=== PATIENT | male | born 1965 ===

== ENCOUNTER 2017-10-17 11:57 | Observation (INO) | payer OTHER ==
[2017-10-17] MEDS ORDERED: Aspirin 325 mg EC Tablets PO ONE (13:04)
--- NOTE | 2017-10-17 13:57 | RAD ---
Chest x-ray single frontal view History: Chest pain. Comparison: None available. Findings: Mild venous congestion. Right hilar prominence. Tortuous ectatic aorta. Mild cardiomegaly. Mild patchy increased markings at the left lung base. Degenerative changes in the spine. Impression: Mild venous congestion. Right hilar prominence. Tortuous ectatic aorta. Mild cardiomegaly. Mild patchy increased markings at the left lung base.
[2017-10-17 14:01] LABS: BASO # 0.1 K/uL (0.0-0.2); BASO % 1.1 % (0.0-2.0); EOS # 0.1 K/uL (0.0-0.7); EOS % 2.4 % (0.0-4.0); HEMOGLOBIN 12.6 g/dL (12.0-18.0); LYMPH # 2.5 K/uL (1.0-4.3); LYMPH % 43.5 % (20.0-40.0); MEAN CORPUSCULAR HEMOGLOBIN 28.8 pg (27.0-31.0); MEAN CORPUSCULAR HGB CONC 32.4 g/dL (33.0-37.0); MEAN PLATELET VOLUME 9.4 fL (7.2-11.7); MONO # 0.3 K/uL (0.0-0.8); MONO % 6.1 % (0.0-10.0); NEUT # 2.7 K/uL (1.8-7.0); NEUT % 46.9 % (50.0-75.0); RBC 4.38 Mil/uL (4.40-5.90); RED CELL DISTRIBUTION WIDTH 13.1 % (11.5-14.5); WHITE BLOOD COUNT 5.7 K/uL (4.8-10.8)
[2017-10-17 14:02] LABS: INR 1.1; PROTHROMBIN TIME 12.5 SECONDS (9.7-12.2)
[2017-10-17 14:13] LABS: ALB/GLOB RATIO 1.1 (1.0-2.1); ALBUMIN 4.4 g/dL (3.5-5.0); CALCIUM 9.5 mg/dl (8.6-10.4); GFR AFRICAN-AMERICAN > 60; GFR NON-AFRICAN AMERICAN > 60
[2017-10-17 14:14] LABS: SQUAMOUS EPITHIAL < 1 /hpf (0-5); URINE BILIRUBIN NEGATIVE (NEGATIVE); URINE BLOOD NEGATIVE (NEGATIVE); URINE CLARITY Clear (Clear); URINE COLOR Yellow (YELLOW); URINE GLUCOSE (UA) NORMAL (Normal); URINE LEUKOCYTE ESTERASE NEG Leu/uL (Negative); URINE PROTEIN NEGATIVE (NEGATIVE); URINE UROBILINOGEN NORMAL mg/dL (0.2-1.0)
[2017-10-17 14:26] LABS: CK-MB 2.31 ng/mL (0.0-3.38)
[2017-10-17 14:28] LABS: BARBITURATES, UR NEGATIVE (NEGATIVE); BENZODIAZEPINES, UR NEGATIVE (NEGATIVE); OPIATES, UR NEGATIVE (NEGATIVE); PHENCYCLIDINE, UR NEGATIVE (NEGATIVE)
[2017-10-17 14:45] LABS: ALT/SGPT 46 U/L (21-72); AST/SGOT 50 U/L (17-59); BLOOD UREA NITROGEN 13 mg/dL (9-20)
--- NOTE | 2017-10-17 15:55 | C.PDOC ---
History Of Present Illness 52-year-old male, presents to the emergency department with complaints of high blood pressure. Patient states he checked his blood pressure last night and it was 170/120 When he woke up this morning he noted some mid sternal chest pain, prompting visit. He denies any shortness of breath, nausea/vomiting, neck pain, arm pain, numbness/weakness or any other associated symptoms. No other complaints at this time Time Seen by Provider: 10/17/17 12:30 Chief Complaint (Nursing): High Blood Pressure History Per: Patient History/Exam Limitations: no limitations Current Symptoms Are (Timing): Still Present Past Medical History Reviewed: Historical Data, Nursing Documentation, Vital Signs Vital Signs: Last Vital Signs Temp 97.6 F 10/17/17 17:53 Pulse 70 10/17/17 17:53 Resp 18 10/17/17 17:53 BP 138/91 H 10/17/17 17:53 Pulse Ox 98 10/17/17 18:31 - Medical History PMH: HTN Family History: States: No Known Family Hx - Social History Hx Alcohol Use: No Hx Substance Use: No - Immunization History Hx Tetanus Toxoid Vaccination: Yes Hx Influenza Vaccination: No Hx Pneumococcal Vaccination: (unk) Review Of Systems Constitutional: Negative for: Fever, Chills Cardiovascular: Positive for: Chest Pain. Negative for: Palpitations Respiratory: Negative for: Shortness of Breath Gastrointestinal: Negative for: Nausea, Vomiting Musculoskeletal: Negative for: Back Pain Skin: Negative for: Rash Neurological: Negative for: Weakness, Numbness, Headache Physical Exam - Physical Exam Appears: Well, Non-toxic, No Acute Distress Skin: Normal Color, Warm, Dry, No Rash Head: Atraumatic, Normacephalic Eye(s): bilateral: Normal Inspection, PERRL, EOMI Nose: Normal Oral Mucosa: Moist Lips: Normal Appearing Neck: Normal ROM Cardiovascular: Rhythm Regular, No Murmur Respiratory: Normal Breath Sounds, No Accessory Muscle Use Gastrointestinal/Abdominal: Soft, No Tenderness Back: Normal Inspection Extremity: Normal ROM, No Deformity, No Swelling Neurological/Psych: Oriented x3, Normal Speech ED Course And Treatment - Laboratory Results Result Diagrams: 10/17/17 13:45 10/17/17 13:48 ECG Rhythm: Sinus Bradycardia Interpretation Of ECG: nonspecific ST-T wave abnormalities Rate From EC O2 Sat by Pulse Oximetry: 98 (RA) Pulse Ox Interpretation: Normal - Other Rad Chest X-Ray X-Ray: Viewed By Me, Read By Radiologist Interpretation: Accession No. : [id number]. Patient Name / ID : [id number] / [id number]. Exam Date : 10/17/2017 13:15:22 ( Approved ). Study Comment : Sex / Age : M / [id number]. Creator : Reese Blackwell MD. Dictator : Reese Blackwell MD. Jewelry Appraiser : Senior Java Web Developer : Reese Blackwell MD. Approver2 : Report Date : 10/17/2017 13:55:47. My Comment : . Chest x-ray single frontal view. History: Chest pain. Comparison: None available. Findings: Mild venous congestion. Right hilar prominence. Tortuous ectatic aorta. Mild cardiomegaly. Mild patchy increased markings at the left lung base. Degenerative changes in the spine. Impression: Mild venous congestion. Right hilar prominence. Tortuous ectatic aorta. Mild cardiomegaly. Mild patchy increased markings at the left lung base. Progress Note: Bloodwork, EKG and UA ordered and reviewed. Pt treated with Aspirin. Case was d/w who accepted patient tele for observation. Disposition - Disposition Disposition: HOSPITALIZED Disposition Time: 15:53 Condition: FAIR - Clinical Impression Clinical Impression: Chest pain - Scribe Statement The provider has reviewed the documentation as recorded by the Scribe (Miguel Morgan) All medical record entries made by the Scribe were at my direction and personally dictated by me. I have reviewed the chart and agree that the record accurately reflects my personal performance of the history, physical exam, medical decision making, and the department course for this patient. I have also personally directed, reviewed, and agree with the discharge instructions and disposition. Decision To Admit - Pt Status Changed To: Hospital Disposition Of: Observation - . Bed Request Type: Telemetry Admitting Physician: Alexis Mari Patient Diagnosis: Chest pain
--- NOTE | 2017-10-17 17:02 | CP.PCM.HP ---
<Eliud Crocker - Last Filed: 10/17/17 17:41> History of Present Illness - History of Present Illness History of Present Illness: 52 year old [place] male with past medical history of hypertension presents to the ED today complaining of shortness of breath and elevated blood pressure. Patient as been experiencing shortness of breath with exertion for the past 3 weeks. His friend recommended him to see a doctor, which he did. Patient went to Dr. [place] in [place]. He underwent blood test, renal ultrasound and EKG. Patient was told that he has hypertension and an "enlarged heart" and was recommended to have an Echocardiogram done. Patient did not pursuit echo because it would cost him too much money. Patient was told start taking Labetalol, Losartan, and baby Aspirin 2 weeks ago. He has been compliant with these medications. However, he noticed his blood pressure reading at home was in the 180s yesterday with intermittent left sided chest burning sensation. No prior history of the same. Patient was worried which prompted him to come to the ED. Patient denies having blurred vision, headache, dizziness, abdominal pain, flank pain, nausea, vomiting, or urinary complaints. He is under some stress because he came the [place] 9 months and currently waiting for his immigration paperwork for him to start working again. PMD: none PMHx: HTN PSHx: none Allergy: none Social hx: social alcohol consumption, denies tobacco and other drug use. Lives with friends in a basement. Unemployed. Family Hx: Mother of AL at 51, father of AL at 75 Home meds: Labetalol 200mg BID, Losartan 100mg daily, ASA 81mg daily Present on Admission - Present on Admission Any Indicators Present on Admission: No Review of Systems - Review of Systems All systems: reviewed and no additional remarkable complaints except - Constitutional Constitutional: As Per HPI. absent: Chills, Excessive Sweating, Fatigue, Fever - EENT Eyes: As Per HPI. absent: Blind Spots, Blurred Vision, Decreased Night Vision Ears: As Per HPI. absent: Decreased Hearing, Abnormal Hearing, Dizziness Nose/Mouth/Throat: As Per HPI. absent: Epistaxis, Nasal Obstruction, Nasal Trauma - Cardiovascular Cardiovascular: As Per HPI, Dyspnea. absent: Chest Pain, Diaphoresis, Edema, Irregular Heart Rhythm, Pedal Edema, Syncope - Respiratory Respiratory: As Per HPI, Dyspnea. absent: Cough, Wheezing, Snoring, Stridor - Gastrointestinal Gastrointestinal: As Per HPI, Heartburn. absent: Abdominal Pain, Bloating, Diarrhea, Nausea, Vomiting - Genitourinary Genitourinary: As Per HPI. absent: Difficulty Urinating, Dysuria, Flank Pain, Hematuria - Reproductive: Male Reproductive:Male: As Per HPI - Musculoskeletal Musculoskeletal: As Per HPI. absent: Abnormal Gait, Deformity, Joint Swelling - Integumentary Integumentary: As Per HPI. absent: Acne, Change in Nails, Change in Pigmentation, Furuncle - Neurological Neurological: As Per HPI. absent: Tingling, Tremor, Vertigo, Weakness - Psychiatric Psychiatric: As Per HPI. absent: Anxiety, Auditory Hallucinations, Confusion - Endocrine Endocrine: As Per HPI. absent: Change in Body Appearance - Hematologic/Lymphatic Hematologic: As Per HPI. absent: Easy Bleeding, Easy Bruising Past Patient History - Past Social History Smoking Status: Never Smoked - CARDIAC Hx Hypertension: Yes - PSYCHIATRIC Hx Substance Use: No - SURGICAL HISTORY Hx Surgeries: No - ANESTHESIA Hx Anesthesia: No Meds Allergies/Adverse Reactions: Allergies Allergy/AdvReac Type Severity Reaction Status Date / Time No Known Allergies Allergy Unverified 10/17/17 12:04 Physical Exam - Constitutional Appears: Well, No Acute Distress - Head Exam Head Exam: ATRAUMATIC, NORMAL INSPECTION, NORMOCEPHALIC - Eye Exam Eye Exam: EOMI, Normal appearance, PERRL Pupil Exam: NORMAL ACCOMODATION, PERRL - ENT Exam ENT Exam: Mucous Membranes Moist, Normal Exam, Normal Oropharynx - Neck Exam Neck exam: Positive for: Full Rom, Normal Inspection. Negative for: Meningismus , Tenderness - Respiratory Exam Respiratory Exam: Clear to Auscultation Bilateral, NORMAL BREATHING PATTERN. absent: Wheezes, Respiratory Distress - Cardiovascular Exam Cardiovascular Exam: REGULAR RHYTHM, +S1, +S2. absent: Gallop, Irregular Rhythm , JVD - GI/Abdominal Exam GI & Abdominal Exam: Normal Bowel Sounds, Soft. absent: Tenderness - Extremities Exam Extremities exam: Positive for: normal capillary refill, normal inspection, pedal pulses present. Negative for: joint swelling, pedal edema, tenderness - Back Exam Back exam: NORMAL INSPECTION. absent: CVA tenderness (L), CVA tenderness (R), paraspinal tenderness - Neurological Exam Neurological exam: Alert, CN II-XII Intact, Normal Gait, Oriented x3 - Psychiatric Exam Psychiatric exam: Normal Affect, Normal Mood - Skin Skin Exam: Dry, Intact, Normal Color, Warm Results - Vital Signs Recent Vital Signs: Last Vital Signs Temp 98.7 F 10/17/17 15:12 Pulse 64 10/17/17 15:12 Resp 16 10/17/17 15:12 BP 135/87 10/17/17 15:12 Pulse Ox 98 10/17/17 16:17 - Labs Result Diagrams: 10/17/17 13:45 10/17/17 13:48 Labs: Laboratory Results - last 24 hr 10/17/17 10/17/17 10/17/17 13:45 13:45 13:45 WBC 5.7 RBC 4.38 L Hgb 12.6 Hct 38.9 MCV 89.0 MCH 28.8 MCHC 32.4 L RDW 13.1 Plt Count 199 MPV 9.4 Neut % (Auto) 46.9 L Lymph % (Auto) 43.5 H Cuming % (Auto) 6.1 Eos % (Auto) 2.4 Baso % (Auto) 1.1 Neut # (Auto) 2.7 Lymph # (Auto) 2.5 Cuming # (Auto) 0.3 Eos # (Auto) 0.1 Baso # (Auto) 0.1 PT 12.5 H INR 1.1 APTT 35 H Sodium Potassium Chloride Carbon Dioxide Anion Gap BUN Creatinine Est GFR ( Amer) Est GFR (Non-Af Amer) Random Glucose Calcium Total Bilirubin AST ALT Alkaline Phosphatase Total Creatine Kinase CK-MB (Mass) Troponin I Total Protein Albumin Globulin Albumin/Globulin Ratio Urine Color Yellow Urine Clarity Clear Urine pH 6.0 Ur Specific [place] 1.017 Urine Protein Negative Urine Glucose (UA) Normal Urine Ketones Negative Urine Blood Negative Urine Nitrate Negative Urine Bilirubin Negative Urine Urobilinogen Normal Ur Leukocyte Esterase Neg Urine WBC (Auto) < 1 Urine RBC (Auto) < 1 Ur Squamous Epith Cells < 1 Urine Opiates Screen Urine Methadone Screen Ur Barbiturates Screen Ur Phencyclidine Scrn Ur Amphetamines Screen U Benzodiazepines Scrn U Oth Cocaine Metabols U Cannabinoids Screen 10/17/17 10/17/17 13:45 13:48 WBC RBC Hgb Hct MCV MCH MCHC RDW Plt Count MPV Neut % (Auto) Lymph % (Auto) Cuming % (Auto) Eos % (Auto) Baso % (Auto) Neut # (Auto) Lymph # (Auto) Cuming # (Auto) Eos # (Auto) Baso # (Auto) PT INR APTT Sodium 142 Potassium 4.5 Chloride 105 Carbon Dioxide 24 Anion Gap 18 BUN 13 Creatinine 0.9 Est GFR ( Amer) > 60 Est GFR (Non-Af Amer) > 60 Random Glucose 76 Calcium 9.5 Total Bilirubin 1.2 AST 50 ALT 46 Alkaline Phosphatase 115 Total Creatine Kinase 295 H CK-MB (Mass) 2.31 Troponin I < 0.0120 Total Protein 8.4 H Albumin 4.4 Globulin 4.0 H Albumin/Globulin Ratio 1.1 Urine Color Urine Clarity Urine pH Ur Specific [place] Urine Protein Urine Glucose (UA) Urine Ketones Urine Blood Urine Nitrate Urine Bilirubin Urine Urobilinogen Ur Leukocyte Esterase Urine WBC (Auto) Urine RBC (Auto) Ur Squamous Epith Cells Urine Opiates Screen Negative Urine Methadone Screen Negative Ur Barbiturates Screen Negative Ur Phencyclidine Scrn Negative Ur Amphetamines Screen Negative U Benzodiazepines Scrn Negative U Oth Cocaine Metabols Negative U Cannabinoids Screen Negative Assessment & Plan - Assessment and Plan (Free Text) Assessment: Shortness of breath -Possible early CHF will follow up on echocardiogram -Follow BNP, TSH, lipid panel -Troponin negative, repeat pending -Outpatient EKG shows LVH, repeat pending -Lasix 20mg IV BID -CXR shows mild venous congestion, follow up AM repeat CXR HTN -Labetalol 200mg BID -Losartan 100mg daily -ASA 81 daily Prophylactic measures -Protonix -Lovenox -LOPEZ score of 1: 5% risk at 14 days of: all-cause mortality, new or recurrent AL, or severe recurrent ischemia requiring urgent revascularization. <Alexis Mari H - Last Filed: 10/18/17 11:05> Results - Vital Signs Recent Vital Signs: Last Vital Signs Temp 98.0 F 10/18/17 08:31 Pulse 58 L 10/18/17 08:31 Resp 20 10/18/17 08:31 BP 137/74 10/18/17 09:56 Pulse Ox 97 10/18/17 08:31 - Labs Result Diagrams: 10/18/17 06:36 10/18/17 06:36 Labs: Laboratory Results - last 24 hr 10/17/17 10/17/17 10/17/17 13:45 13:45 13:45 WBC 5.7 RBC 4.38 L Hgb 12.6 Hct 38.9 MCV 89.0 MCH 28.8 MCHC 32.4 L RDW 13.1 Plt Count 199 MPV 9.4 Neut % (Auto) 46.9 L Lymph % (Auto) 43.5 H Cuming % (Auto) 6.1 Eos % (Auto) 2.4 Baso % (Auto) 1.1 Neut # (Auto) 2.7 Lymph # (Auto) 2.5 Cuming # (Auto) 0.3 Eos # (Auto) 0.1 Baso # (Auto) 0.1 PT 12.5 H INR 1.1 APTT 35 H Sodium Potassium Chloride Carbon Dioxide Anion Gap BUN Creatinine Est GFR ( Amer) Est GFR (Non-Af Amer) Random Glucose Calcium Total Bilirubin AST ALT Alkaline Phosphatase Total Creatine Kinase CK-MB (Mass) Troponin I NT-Pro-B Natriuret Pep Total Protein Albumin Globulin Albumin/Globulin Ratio Triglycerides Cholesterol LDL Cholesterol Direct HDL Cholesterol TSH 3rd Generation Urine Color Yellow Urine Clarity Clear Urine pH 6.0 Ur Specific [place] 1.017 Urine Protein Negative Urine Glucose (UA) Normal Urine Ketones Negative Urine Blood Negative Urine Nitrate Negative Urine Bilirubin Negative Urine Urobilinogen Normal Ur Leukocyte Esterase Neg Urine WBC (Auto) < 1 Urine RBC (Auto) < 1 Ur Squamous Epith Cells < 1 Urine Opiates Screen Urine Methadone Screen Ur Barbiturates Screen Ur Phencyclidine Scrn Ur Amphetamines Screen U Benzodiazepines Scrn U Oth Cocaine Metabols U Cannabinoids Screen 10/17/17 10/17/17 10/17/17 13:45 13:48 19:51 WBC RBC Hgb Hct MCV MCH MCHC RDW Plt Count MPV Neut % (Auto) Lymph % (Auto) Cuming % (Auto) Eos % (Auto) Baso % (Auto) Neut # (Auto) Lymph # (Auto) Cuming # (Auto) Eos # (Auto) Baso # (Auto) PT INR APTT Sodium 142 Potassium 4.5 Chloride 105 Carbon Dioxide 24 Anion Gap 18 BUN 13 Creatinine 0.9 Est GFR ( Amer) > 60 Est GFR (Non-Af Amer) > 60 Random Glucose 76 Calcium 9.5 Total Bilirubin 1.2 AST 50 ALT 46 Alkaline Phosphatase 115 Total Creatine Kinase 295 H CK-MB (Mass) 2.31 Troponin I < 0.0120 NT-Pro-B Natriuret Pep 59.1 Total Protein 8.4 H Albumin 4.4 Globulin 4.0 H Albumin/Globulin Ratio 1.1 Triglycerides Cholesterol LDL Cholesterol Direct HDL Cholesterol TSH 3rd Generation 1.76 Urine Color Urine Clarity Urine pH Ur Specific [place] Urine Protein Urine Glucose (UA) Urine Ketones Urine Blood Urine Nitrate Urine Bilirubin Urine Urobilinogen Ur Leukocyte Esterase Urine WBC (Auto) Urine RBC (Auto) Ur Squamous Epith Cells Urine Opiates Screen Negative Urine Methadone Screen Negative Ur Barbiturates Screen Negative Ur Phencyclidine Scrn Negative Ur Amphetamines Screen Negative U Benzodiazepines Scrn Negative U Oth Cocaine Metabols Negative U Cannabinoids Screen Negative 10/17/17 10/18/17 10/18/17 19:51 06:36 06:36 WBC 5.2 RBC 4.25 L Hgb 12.2 Hct 37.6 MCV 88.3 MCH 28.8 MCHC 32.5 L RDW 12.8 Plt Count 247 MPV 8.6 Neut % (Auto) 55.9 Lymph % (Auto) 32.6 Cuming % (Auto) 8.0 Eos % (Auto) 2.5 Baso % (Auto) 1.0 Neut # (Auto) 2.9 Lymph # (Auto) 1.7 Cuming # (Auto) 0.4 Eos # (Auto) 0.1 Baso # (Auto) 0.1 PT INR APTT Sodium 140 Potassium 4.2 Chloride 104 Carbon Dioxide 26 Anion Gap 15 BUN 14 Creatinine 0.9 Est GFR ( Amer) > 60 Est GFR (Non-Af Amer) > 60 Random Glucose 88 Calcium 9.3 Total Bilirubin 1.0 AST 36 ALT 56 Alkaline Phosphatase 117 Total Creatine Kinase 258 H CK-MB (Mass) 1.73 Troponin I < 0.0120 NT-Pro-B Natriuret Pep Total Protein 7.8 Albumin 4.2 Globulin 3.7 Albumin/Globulin Ratio 1.1 Triglycerides 106 Cholesterol 187 LDL Cholesterol Direct 119 HDL Cholesterol 30 TSH 3rd Generation Urine Color Urine Clarity Urine pH Ur Specific [place] Urine Protein Urine Glucose (UA) Urine Ketones Urine Blood Urine Nitrate Urine Bilirubin Urine Urobilinogen Ur Leukocyte Esterase Urine WBC (Auto) Urine RBC (Auto) Ur Squamous Epith Cells Urine Opiates Screen Urine Methadone Screen Ur Barbiturates Screen Ur Phencyclidine Scrn Ur Amphetamines Screen U Benzodiazepines Scrn U Oth Cocaine Metabols U Cannabinoids Screen Attending/Attestation - Attestation I have personally seen and examined this patient.: Yes I have fully participated in the care of the patient.: Yes I have reviewed all pertinent clinical information: Yes Notes (Text): 10/18/17 11:03 Medical attending: Patient was seen and examined by me. Agree with the above note by the resident The patient was not in any acute distress when we saw him yesterday afternoon. He was speaking in full sentences. Calm, NAD The patient on the XCRAY may have had minimal congestion. He had an echo ordered as well as repeat CXRAYs. Lab work was stable The patient will need life style modifications, diet, exercise. Later the next day the echo returned. We will be trying to DC later today. He was provided RXs for medications and instructed that he should follow up at the clinic if possible. thank you Alexis Mari
[2017-10-17 20:35] LABS: CK-MB 1.73 ng/mL (0.0-3.38)
[2017-10-17 20:36] LABS: B-TYPE NATRIURETIC PEPTIDE 59.1 pg/mL (0-900)
[2017-10-18 01:17] VITALS: RESP 20
[2017-10-18 04:37] VITALS: O2SAT 97
[2017-10-18 06:44] LABS: BASO # 0.1 K/uL (0.0-0.2); EOS # 0.1 K/uL (0.0-0.7); EOS % 2.5 % (0.0-4.0); HEMOGLOBIN 12.2 g/dL (12.0-18.0); LYMPH # 1.7 K/uL (1.0-4.3); LYMPH % 32.6 % (20.0-40.0); MEAN CELL VOLUME 88.3 fL (80.0-94.0); MEAN CORPUSCULAR HEMOGLOBIN 28.8 pg (27.0-31.0); MEAN CORPUSCULAR HGB CONC 32.5 g/dL (33.0-37.0); MEAN PLATELET VOLUME 8.6 fL (7.2-11.7); MONO # 0.4 K/uL (0.0-0.8); NEUT # 2.9 K/uL (1.8-7.0); NEUT % 55.9 % (50.0-75.0); NRBC % 0.1 % (0.0-2.0); RBC 4.25 Mil/uL (4.40-5.90); RED CELL DISTRIBUTION WIDTH 12.8 % (11.5-14.5); WHITE BLOOD COUNT 5.2 K/uL (4.8-10.8)
[2017-10-18 07:17] LABS: LDL CHOLESTEROL 119 mg/dL (0-129)
[2017-10-18 07:24] LABS: ALBUMIN 4.2 g/dL (3.5-5.0); BLOOD UREA NITROGEN 14 mg/dL (9-20); CALCIUM 9.3 mg/dl (8.6-10.4); GFR AFRICAN-AMERICAN > 60; GFR NON-AFRICAN AMERICAN > 60
[2017-10-18 07:25] LABS: ALB/GLOB RATIO 1.1 (1.0-2.1); ALT/SGPT 56 U/L (21-72); AST/SGOT 36 U/L (17-59); HDL CHOLESTEROL 30 mg/dL (30-70)
[2017-10-18 08:32] VITALS: PULSE 58; TEMP 98
[2017-10-18 09:59] VITALS: BP 137/74
[2017-10-18] MEDS ORDERED: Pantoprazole 40 mg EC Tab PO SCH (10:00)
[2017-10-18] MEDS ORDERED: Enoxaparin 40 mg Syringe SC SCH (10:00)
--- NOTE | 2017-10-18 10:38 | CARD ---
APPROVED REPORT EXAM: Two-dimensional and M-mode echocardiogram with Doppler and color Doppler. Other Information Quality : LimitedTechnically LimitedRhythm : NSR INDICATION Dyspnea Chest Pain M-Mode DIMENSIONS RVDd2.26 (2.1-3.2cm)Left Atrium (MM)3.71 (2.5-4.0cm) IVSd1.02 (0.7-1.1cm)Aortic Root2.81 (2.2-3.7cm) LVDd3.63 (4.0-5.6cm)Aortic Cusp Exc.1.80 (1.5-2.0cm) PWd1.06 (0.7-1.1cm)FS (%) 58 % LVDs1.52 (2.0-3.8cm)LVEF (%)89 (>50%) Aortic Valve AoV Peak Jlzepfzu190.5cm/[place] Peak GR.11mmHg Mitral Valve MV E Xuurenlm54.2cm/sMV A Jpxrqrbu19.8cm/sE/A ratio0.7 TDI E/Lateral E'0.0E/Medial E'0.0 Tricuspid Valve TR Peak [id number]/sTR Peak Gr.[id number] LEFT VENTRICLE The left ventricle is normal size. There is normal left ventricular wall thickness. The left ventricular systolic function is normal. The left ventricular ejection fraction is within the normal range. There is normal LV segmental wall motion. Transmitral Doppler flow pattern is normal for age. RIGHT VENTRICLE The right ventricle is normal size. The right ventricular systolic function is normal. ATRIA The left atrium size is normal. The right atrium size is normal. AORTIC VALVE The aortic valve is normal in structure. No aortic regurgitation is present. There is no aortic valvular stenosis. MITRAL VALVE The mitral valve is normal in structure. There is no mitral valve regurgitation noted. TRICUSPID VALVE The tricuspid valve is normal in structure. There is trace tricuspid regurgitation. Right ventricular systolic pressure is estimated at less than 30 mmHg. PULMONIC VALVE The pulmonary valve is normal in structure. There is trace pulmonic valvular regurgitation. GREAT VESSELS The aortic root is normal in size. The IVC is normal in size and collapses >50% with inspiration. PERICARDIAL EFFUSION There is no pericardial effusion. <Conclusion> Normal bi-ventricualr function. No significant valvular abnormality. No pericardial effusion.
--- NOTE | 2017-10-18 11:23 | RAD ---
HISTORY: shortness of breath COMPARISON: Comparison chest 10/17/2017 FINDINGS: LUNGS: Poor inspiration with low lung volumes, crowded bronchovascular markings and minor bibasilar atelectasis. PLEURA: No significant pleural effusion identified, no pneumothorax apparent. CARDIOVASCULAR: Cardiomegaly. OSSEOUS STRUCTURES: No significant abnormalities. VISUALIZED UPPER ABDOMEN: Normal. OTHER FINDINGS: None. IMPRESSION: Poor inspiration with low lung volumes, crowded bronchovascular markings and minor bibasilar atelectasis.
[2017-10-18] MEDS ORDERED: Pneumococcal 23-Valent Vaccine IM ONE (12:00)
--- NOTE | 2017-10-18 18:00 | CP.PCM.DIS ---
<Danielle CATALANMonique K - Last Filed: 10/18/17 18:42> Provider - Provider Date of Admission: 10/17/17 15:52 Attending physician: Alexis Mari DO Time Spent in preparation of Discharge (in minutes): 40 Diagnosis - Discharge Diagnosis (1) Hypertension Status: Acute Comment: Patient was evaluated for chest pain and hypertension. Patient's blood pressure was controlled with losartan and labetalol. Patient had echocardiogram done while inpatient. Patient was provided with results of echo , as well as blood work. Patient has resolution of symptoms. Hospital Course - Lab Results Lab Results: Most Recent Lab Values WBC 5.2 K/uL (4.8-10.8) 10/18/17 06:36 RBC 4.25 Mil/uL (4.40-5.90) L 10/18/17 06:36 Hgb 12.2 g/dL (12.0-18.0) 10/18/17 06:36 Hct 37.6 % (35.0-51.0) 10/18/17 06:36 MCV 88.3 fL (80.0-94.0) 10/18/17 06:36 MCH 28.8 pg (27.0-31.0) 10/18/17 06:36 MCHC 32.5 g/dL (33.0-37.0) L 10/18/17 06:36 RDW 12.8 % (11.5-14.5) 10/18/17 06:36 Plt Count 247 K/uL (130-400) 10/18/17 06:36 MPV 8.6 fL (7.2-11.7) 10/18/17 06:36 Neut % (Auto) 55.9 % (50.0-75.0) 10/18/17 06:36 Lymph % (Auto) 32.6 % (20.0-40.0) 10/18/17 06:36 [place] % (Auto) 8.0 % (0.0-10.0) 10/18/17 06:36 Eos % (Auto) 2.5 % (0.0-4.0) 10/18/17 06:36 Baso % (Auto) 1.0 % (0.0-2.0) 10/18/17 06:36 Neut # (Auto) 2.9 K/uL (1.8-7.0) 10/18/17 06:36 Lymph # (Auto) 1.7 K/uL (1.0-4.3) 10/18/17 06:36 [place] # (Auto) 0.4 K/uL (0.0-0.8) 10/18/17 06:36 Eos # (Auto) 0.1 K/uL (0.0-0.7) 10/18/17 06:36 Baso # (Auto) 0.1 K/uL (0.0-0.2) 10/18/17 06:36 PT 12.5 SECONDS (9.7-12.2) H 10/17/17 13:45 INR 1.1 10/17/17 13:45 APTT 35 SECONDS (21-34) H 10/17/17 13:45 Sodium 140 mmol/L (132-148) 10/18/17 06:36 Potassium 4.2 mmol/L (3.6-5.2) 10/18/17 06:36 Chloride 104 mmol/L (98-107) 10/18/17 06:36 Carbon Dioxide 26 mmol/L (22-30) 10/18/17 06:36 Anion Gap 15 (10-20) 10/18/17 06:36 BUN 14 mg/dL (9-20) 10/18/17 06:36 Creatinine 0.9 mg/dL (0.8-1.5) 10/18/17 06:36 Est GFR ( Amer) > 60 10/18/17 06:36 Est GFR (Non-Af Amer) > 60 10/18/17 06:36 Random Glucose 88 mg/dL (75-110) 10/18/17 06:36 Calcium 9.3 mg/dl (8.6-10.4) 10/18/17 06:36 Total Bilirubin 1.0 mg/dL (0.2-1.3) 10/18/17 06:36 AST 36 U/L (17-59) 10/18/17 06:36 ALT 56 U/L (21-72) 10/18/17 06:36 Alkaline Phosphatase 117 U/L (38-126) 10/18/17 06:36 Total Creatine Kinase 258 U/L (55-170) H 10/17/17 19:51 CK-MB (Mass) 1.73 ng/mL (0.0-3.38) 10/17/17 19:51 Troponin I < 0.0120 ng/mL (0.00-0.120) 10/17/17 19:51 NT-Pro-B Natriuret Pep 59.1 pg/mL (0-900) 10/17/17 19:51 Total Protein 7.8 g/dL (6.3-8.3) 10/18/17 06:36 Albumin 4.2 g/dL (3.5-5.0) 10/18/17 06:36 Globulin 3.7 gm/dL (2.2-3.9) 10/18/17 06:36 Albumin/Globulin Ratio 1.1 (1.0-2.1) 10/18/17 06:36 Triglycerides 106 mg/dL (0-149) 10/18/17 06:36 Cholesterol 187 mg/dL (0-199) 10/18/17 06:36 LDL Cholesterol Direct 119 mg/dL (0-129) 10/18/17 06:36 HDL Cholesterol 30 mg/dL (30-70) 10/18/17 06:36 TSH 3rd Generation 1.76 mIU/L (0.46-4.68) 10/17/17 19:51 Urine Color Yellow (YELLOW) 10/17/17 13:45 Urine Clarity Clear (Clear) 10/17/17 13:45 Urine pH 6.0 (5.0-8.0) 10/17/17 13:45 Ur Specific [place] 1.017 (1.003-1.030) 10/17/17 13:45 Urine Protein Negative mg/dL (NEGATIVE) 10/17/17 13:45 Urine Glucose (UA) Normal mg/dL (Normal) 10/17/17 13:45 Urine Ketones Negative mg/dL (NEGATIVE) 10/17/17 13:45 Urine Blood Negative (NEGATIVE) 10/17/17 13:45 Urine Nitrate Negative (NEGATIVE) 10/17/17 13:45 Urine Bilirubin Negative (NEGATIVE) 10/17/17 13:45 Urine Urobilinogen Normal mg/dL (0.2-1.0) 10/17/17 13:45 Ur Leukocyte Esterase Neg Marek/uL (Negative) 06/29/18 13:45 Urine WBC (Auto) < 1 /hpf (0-5) 10/17/17 13:45 Urine RBC (Auto) < 1 /hpf (0-3) 10/17/17 13:45 Ur Squamous Epith Cells < 1 /hpf (0-5) 10/17/17 13:45 Urine Opiates Screen Negative (NEGATIVE) 10/17/17 13:45 Urine Methadone Screen Negative (NEGATIVE) 10/17/17 13:45 Ur Barbiturates Screen Negative (NEGATIVE) 10/17/17 13:45 Ur Phencyclidine Scrn Negative (NEGATIVE) 10/17/17 13:45 Ur Amphetamines Screen Negative (NEGATIVE) 10/17/17 13:45 U Benzodiazepines Scrn Negative (NEGATIVE) 10/17/17 13:45 U Oth Cocaine Metabols Negative (NEGATIVE) 10/17/17 13:45 U Cannabinoids Screen Negative (NEGATIVE) 10/17/17 13:45 - Hospital Course Hospital Course: On Admission: 52 year old Porfirio male with past medical history of hypertension presents to the ED today complaining of shortness of breath and elevated blood pressure. Patient as been experiencing shortness of breath with exertion for the past 3 weeks. His friend recommended him to see a doctor, which he did. Patient went to Dr. Wilson in [place]. He underwent blood test, renal ultrasound and EKG. Patient was told that he has hypertension and an "enlarged heart" and was recommended to have an Echocardiogram done. Patient did not pursuit echo because it would cost him too much money. Patient was told start taking Labetalol, Losartan, and baby Aspirin 2 weeks ago. He has been compliant with these medications. However, he noticed his blood pressure reading at home was in the 180s yesterday with intermittent left sided chest burning sensation. No prior history of the same. Patient was worried which prompted him to come to the ED. Patient denies having blurred vision, headache, dizziness, abdominal pain, flank pain, nausea, vomiting, or urinary complaints. He is under some stress because he came the [place] and currently waiting for his immigration paperwork for him to start working again. During hospitalizatoin: Patient's blood pressure was controlled during hospitalization. Patient's lipid panel was normal. Patient's thyroid function was normal. Patient's troponins were normal. BNP was not elevated. Echo: normal biventricular function, no significant valvular abnormality, no pericardial effusion, LVEF 65%. (see full report) chest xray: poor inspiration with low lung volumes, crowded bronchovascular markings, minor bibasilar atelectasis. No significant pleural effusion identified, no pneumothorax. Patient's symptoms improved during hospitalization. Patient was instructed to follow up with [facility] at [facility]. Diet and exercise, lifestyle modifications, were discussed at length with patient with use of Indemand Salvadorean translation device. On Discharge: Patient is stable for discharge home per Dr. Mari. Patient is to take the following medications: Labetalol 200mg twice a day, losartan 100mg once a day, lasix 20mg once a day in the morning, aspirin 81mg once a day. Patient is to follow up in the [facility] at [facility] and call on Friday for an appointment [phone]. Patient is to return to the ED if symptoms reoccur or worsen. This was explained to the patient with stage set up worker device; patient understands and agrees. Patient given palencia for half the cost of his medication. Explained to patient that he must pay other half of medication cost. Discharge Exam - Head Exam Head Exam: ATRAUMATIC, NORMAL INSPECTION, NORMOCEPHALIC - Eye Exam Eye Exam: EOMI - ENT Exam ENT Exam: Mucous Membranes Moist - Respiratory Exam Respiratory Exam: Clear to PA & Lateral, NORMAL BREATHING PATTERN - Cardiovascular Exam Cardiovascular Exam: +S1, +S2 - GI/Abdominal Exam GI & Abdominal Exam: Normal Bowel Sounds, Soft. absent: Tenderness - Extremities Exam Extremities exam: normal inspection - Neurological Exam Neurological exam: Alert, Oriented x3 - Psychiatric Exam Psychiatric exam: Normal Affect - Skin Skin Exam: Dry, Warm Discharge Plan - Discharge Medications Prescriptions: Aspirin [Aspirin Chewable] 81 mg PO DAILY #30 chew Furosemide [Lasix] 20 mg PO DAILY #30 udc Labetalol [Trandate] 200 mg PO BID #60 tab Losartan [Cozaar] 100 mg PO DAILY #30 tab - Follow Up Plan Condition: FAIR Disposition: HOME/ ROUTINE Instructions: Chest Pain (DC) Additional Instructions: Patient is stable for discharge home per Dr. Mari. Patient is to take the following medications: Labetalol 200mg twice a day, losartan 100mg once a day, lasix 20mg once a day in the morning, aspirin 81mg once a day. Patient is to follow up in the [facility] at [facility] and call on Friday for an appointment [phone]. Patient is to return to the ED if symptoms reoccur or worsen. This was explained to the patient with stage set up worker device; patient understands and agrees. Patient given palencia for half the cost of his medication. Explained to patient that he must pay other half of medication cost. El paciente es estable para la descarga casera por el Dr. Mari. El paciente debe eyal los siguientes medicamentos: 200 mg de labetalol dos veces al da, losartn 100mg vaishnavi vez al da, Lasix 20mg vaishnavi vez al da por la maana, aspirina 81mg vaishnavi vez al da. El paciente debe seguir en el centro de horacio del vecindario en el hospital [facility] y llamar el lunes para vaishnavi edgar [phone]. El paciente debe volver al Ed si los sntomas se reproducen o empeoran. [facility] fue explicada al paciente con el dispositivo Espaol del traductor; el paciente entiende y est de acuerdo. El paciente le bradford efectivo por la mitad del costo de rosenberg medicacin. Explic al paciente que debe pagar la otra mitad del costo de la medicacin. Referrals: [facility] at [facility] [Outside] <Alexis Mari - Last Filed: 10/19/17 07:59> Provider - Provider Date of Admission: 10/17/17 15:52 Attending physician: Alexis Mari, DO Hospital Course - Lab Results Lab Results: Most Recent Lab Values WBC 5.2 K/uL (4.8-10.8) 10/18/17 06:36 RBC 4.25 Mil/uL (4.40-5.90) L 10/18/17 06:36 Hgb 12.2 g/dL (12.0-18.0) 10/18/17 06:36 Hct 37.6 % (35.0-51.0) 10/18/17 06:36 MCV 88.3 fL (80.0-94.0) 10/18/17 06:36 MCH 28.8 pg (27.0-31.0) 10/18/17 06:36 MCHC 32.5 g/dL (33.0-37.0) L 10/18/17 06:36 RDW 12.8 % (11.5-14.5) 10/18/17 06:36 Plt Count 247 K/uL (130-400) 10/18/17 06:36 MPV 8.6 fL (7.2-11.7) 10/18/17 06:36 Neut % (Auto) 55.9 % (50.0-75.0) 10/18/17 06:36 Lymph % (Auto) 32.6 % (20.0-40.0) 10/18/17 06:36 [place] % (Auto) 8.0 % (0.0-10.0) 10/18/17 06:36 Eos % (Auto) 2.5 % (0.0-4.0) 10/18/17 06:36 Baso % (Auto) 1.0 % (0.0-2.0) 10/18/17 06:36 Neut # (Auto) 2.9 K/uL (1.8-7.0) 10/18/17 06:36 Lymph # (Auto) 1.7 K/uL (1.0-4.3) 10/18/17 06:36 [place] # (Auto) 0.4 K/uL (0.0-0.8) 10/18/17 06:36 Eos # (Auto) 0.1 K/uL (0.0-0.7) 10/18/17 06:36 Baso # (Auto) 0.1 K/uL (0.0-0.2) 10/18/17 06:36 PT 12.5 SECONDS (9.7-12.2) H 10/17/17 13:45 INR 1.1 10/17/17 13:45 APTT 35 SECONDS (21-34) H 10/17/17 13:45 Sodium 140 mmol/L (132-148) 10/18/17 06:36 Potassium 4.2 mmol/L (3.6-5.2) 10/18/17 06:36 Chloride 104 mmol/L (98-107) 10/18/17 06:36 Carbon Dioxide 26 mmol/L (22-30) 10/18/17 06:36 Anion Gap 15 (10-20) 10/18/17 06:36 BUN 14 mg/dL (9-20) 10/18/17 06:36 Creatinine 0.9 mg/dL (0.8-1.5) 10/18/17 06:36 Est GFR ( Amer) > 60 10/18/17 06:36 Est GFR (Non-Af Amer) > 60 10/18/17 06:36 Random Glucose 88 mg/dL (75-110) 10/18/17 06:36 Calcium 9.3 mg/dl (8.6-10.4) 10/18/17 06:36 Total Bilirubin 1.0 mg/dL (0.2-1.3) 10/18/17 06:36 AST 36 U/L (17-59) 10/18/17 06:36 ALT 56 U/L (21-72) 10/18/17 06:36 Alkaline Phosphatase 117 U/L (38-126) 10/18/17 06:36 Total Creatine Kinase 258 U/L (55-170) H 10/17/17 19:51 CK-MB (Mass) 1.73 ng/mL (0.0-3.38) 10/17/17 19:51 Troponin I < 0.0120 ng/mL (0.00-0.120) 10/17/17 19:51 NT-Pro-B Natriuret Pep 59.1 pg/mL (0-900) 10/17/17 19:51 Total Protein 7.8 g/dL (6.3-8.3) 10/18/17 06:36 Albumin 4.2 g/dL (3.5-5.0) 10/18/17 06:36 Globulin 3.7 gm/dL (2.2-3.9) 10/18/17 06:36 Albumin/Globulin Ratio 1.1 (1.0-2.1) 10/18/17 06:36 Triglycerides 106 mg/dL (0-149) 10/18/17 06:36 Cholesterol 187 mg/dL (0-199) 10/18/17 06:36 LDL Cholesterol Direct 119 mg/dL (0-129) 10/18/17 06:36 HDL Cholesterol 30 mg/dL (30-70) 10/18/17 06:36 TSH 3rd Generation 1.76 mIU/L (0.46-4.68) 10/17/17 19:51 Urine Color Yellow (YELLOW) 10/17/17 13:45 Urine Clarity Clear (Clear) 10/17/17 13:45 Urine pH 6.0 (5.0-8.0) 10/17/17 13:45 Ur Specific [place] 1.017 (1.003-1.030) 10/17/17 13:45 Urine Protein Negative mg/dL (NEGATIVE) 10/17/17 13:45 Urine Glucose (UA) Normal mg/dL (Normal) 10/17/17 13:45 Urine Ketones Negative mg/dL (NEGATIVE) 10/17/17 13:45 Urine Blood Negative (NEGATIVE) 10/17/17 13:45 Urine Nitrate Negative (NEGATIVE) 10/17/17 13:45 Urine Bilirubin Negative (NEGATIVE) 10/17/17 13:45 Urine Urobilinogen Normal mg/dL (0.2-1.0) 10/17/17 13:45 Ur Leukocyte Esterase Neg Marek/uL (Negative) 10/17/17 13:45 Urine WBC (Auto) < 1 /hpf (0-5) 10/17/17 13:45 Urine RBC (Auto) < 1 /hpf (0-3) 10/17/17 13:45 Ur Squamous Epith Cells < 1 /hpf (0-5) 10/17/17 13:45 Urine Opiates Screen Negative (NEGATIVE) 10/17/17 13:45 Urine Methadone Screen Negative (NEGATIVE) 10/17/17 13:45 Ur Barbiturates Screen Negative (NEGATIVE) 10/17/17 13:45 Ur Phencyclidine Scrn Negative (NEGATIVE) 10/17/17 13:45 Ur Amphetamines Screen Negative (NEGATIVE) 10/17/17 13:45 U Benzodiazepines Scrn Negative (NEGATIVE) 10/17/17 13:45 U Oth Cocaine Metabols Negative (NEGATIVE) 10/17/17 13:45 U Cannabinoids Screen Negative (NEGATIVE) 10/17/17 13:45 Attending/Attestation - Attestation I have personally seen and examined this patient.: Yes I have fully participated in the care of the patient.: Yes I have reviewed all pertinent clinical information, including history, physical exam and plan: Yes Notes (Text): 10/19/17 07:54 Medical attending: Patient was seen and examined by me. Reviewed above note by the resident This is a 52 year old gentleman who from what I understand just arrived from [place] and came to the hospital due to concerns for shortness of breath. He had a CXRAY and also Echo done. While here the patient had improvment with the help of IV lasix. He had many questions which required the help of translation. He had difficulty affording the cost of his medication and so we provided him with half the cost, he will be responsible for the other half. I will be extremely displeased with him should I find out in the future he used the money we provided him in a manner that is irresponsible. But I will give him the benifit of optomism. thank you Alexis Mari
== END 2017-10-18 14:45 | disposition home or self-care (01) ==
LOC: C.ER 11:57 → C.9E 15:52 → C.6T 16:44
PROVIDERS: ADMIT Hospitalist; ATTEND Hospitalist
DX: R07.89 Other chest pain (principal); I10 Essential (primary) hypertension; Z79.82 Long term (current) use of aspirin; Z82.49 Family history of ischemic heart disease and other diseases of the circulatory system; Z79.899 Other long term (current) drug therapy
CPT/HCPCS: 36415; 71045; 80053; 80061; 80324; 80345; 80346; 80349; 80353; 80358; 80361; 81001; 82550; 82553; 83036; 83880; 83992; 84443; 84484; 85025; 85610; 85730; 90471; 90732; 93306; 96372; 96374; 96376; 99285; G0378; J1650; J1940

== ENCOUNTER 2017-10-19 18:30 | Emergency (ER) | payer OTHER ==
[2017-10-19 18:38] VITALS: PULSE 90; TEMP 98.6; O2SAT 96
--- NOTE | 2017-10-19 19:30 | C.PDOC ---
History Of Present Illness 52 year old male presents to the ED c/o feeling hypotensive by home blood pressure cuff. Patient also states feeling mildly weak. Patient was admitted on 10/17 until 10/18 for elevated blood pressure. Patient was placed on labetalol and lasix, patient also had a cardiac echo done which is PMD Dr. Costello ordered but patient never had it done as an outpatient. Patient's admission was reviewed by me. CXR was negative with no signs of CHF, normal cardiac echo, patient never had any leg edema. Time Seen by Provider: 10/19/17 18:46 Chief Complaint (Nursing): Dizziness/Lightheaded History Per: Patient History/Exam Limitations: no limitations Onset/Duration Of Symptoms: Days Current Symptoms Are (Timing): Still Present Number Of Syncopal Episodes: 1 Activity At Onset Of Symptoms: Standing Associated Symptoms Preceding Syncopal Episode: No Predromal Symptoms (Sudden Onset) Seizure Or Post-ictal Symptoms: None Fall Associated With With Symptoms: No Severity: None Recent travel outside of the [place]: No Additional History Per: Patient Past Medical History Reviewed: Historical Data, Nursing Documentation, Vital Signs Vital Signs: Last Vital Signs Temp 98.6 F 10/19/17 18:35 Pulse 90 10/19/17 19:21 Resp 18 10/19/17 19:21 BP 102/68 10/19/17 19:21 Pulse Ox 96 10/19/17 19:30 - Medical History PMH: HTN Surgical History: No Surg Hx Family History: States: Unknown Family Hx - Social History Hx Alcohol Use: No Hx Substance Use: No - Immunization History Hx Tetanus Toxoid Vaccination: Yes Hx Influenza Vaccination: No Hx Pneumococcal Vaccination: (unk) Review Of Systems Constitutional: Positive for: Weakness. Negative for: Fever, Chills Cardiovascular: Negative for: Chest Pain, Palpitations Respiratory: Negative for: Cough, Shortness of Breath Gastrointestinal: Negative for: Nausea, Vomiting, Abdominal Pain Genitourinary: Negative for: Frequency, Incontinence Skin: Negative for: Rash Neurological: Negative for: Dizziness Physical Exam - Physical Exam Appears: Non-toxic, No Acute Distress, Other (morbidly obese male) Skin: Normal Color, Warm, Dry Head: Atraumatic, Normacephalic Eye(s): bilateral: Normal Inspection Oral Mucosa: Moist Neck: Normal ROM, Supple Chest: Symmetrical Cardiovascular: Rhythm Regular, No JVD Respiratory: Normal Breath Sounds, No Rales, No Rhonchi, No Wheezing Gastrointestinal/Abdominal: Soft, No Tenderness, No Guarding, No Rebound Extremity: Normal ROM, No Tenderness, No Pedal Edema, Capillary Refill (< 2 seconds) Pulses: Left Dorsalis Pedis: Normal, Right Dorsalis Pedis: Normal Neurological/Psych: Oriented x3, Normal Speech Gait: Steady ED Course And Treatment O2 Sat by Pulse Oximetry: 96 (ON RA) Pulse Ox Interpretation: Normal Medical Decision Making Medical Decision Making: Patient states he is currently taking : * Losartan 100 mg in the AM * Labetolo 200 at 8 AM and the at Midnight 200 mg as well. * Lasix 40 mg in the AM * Aspirin 81 mg. Old records reviewed by me: admitted 10/17- for elevated BP BP controlled with lasix as inpatient but continued as outpatient though pt without any s/s of CHF d/w Hospitalists ok to d/c Lasix extensively educated pt to take BID labetalol @ 8AM and 4PM and NOT 8AM and midnight. ? malingering as pt claims to be "waiting until someone gives me the other $40 to buy my medicines" was given $20 palencia from physicians kind enough to help this pt. Pt certainly has means to continue to buy his own meds. Disposition Doctor Will See Patient In The: Office Counseled Patient/Family Regarding: Studies Performed, Diagnosis - Disposition Referrals: Bridger Costello MD [Medical Doctor] - Disposition: HOME/ ROUTINE Disposition Time: 19:30 Condition: GOOD Additional Instructions: Sigue Losartan 100 mg en la manana (8AM) Sigue Labetolol 200 mg dos veces al faustino: (8AM y 4PM) Leigha de eyal el Lasix- Ud NO tiene yosef del alesha congestivo. Sigue Aspirina 81 mg diario (en la manana) Sigue con Dr. Sewell Instructions: High Blood Pressure in Adults Forms: [facility] (South Korean) Print Language: BURMESE - Clinical Impression Clinical Impression: Blood pressure check - Scribe Statement The provider has reviewed the documentation as recorded by the Scribe Octavio Diaz All medical record entries made by the Scribe were at my direction and personally dictated by me. I have reviewed the chart and agree that the record accurately reflects my personal performance of the history, physical exam, medical decision making, and the department course for this patient. I have also personally directed, reviewed, and agree with the discharge instructions and disposition.
[2017-10-19 19:38] VITALS: BP 102/68; RESP 18
--- NOTE | 2017-10-20 19:52 | CARD ---
APPROVED REPORT EKG Measurement Heart [id number] <Conclusion> Normal sinus rhythm Moderate voltage criteria for LVH, may be normal variant Nonspecific T wave abnormality Abnormal ECG
== END 2017-10-19 19:38 | disposition home or self-care (01) ==
LOC: C.ER 18:30
DX: Z04.8 Encounter for examination and observation for other specified reasons (principal)

== ENCOUNTER 2017-11-18 11:45 | Emergency (ER) | payer OTHER ==
[2017-11-18 12:10] VITALS: RESP 18; O2SAT 98
--- NOTE | 2017-11-18 12:20 | C.PDOC ---
History Of Present Illness <Dolores Puga - Last Filed: 11/18/17 12:56> <Lena Mayer - Last Filed: 11/19/17 08:15> 52 year old male patient presents to the ER with c/o subjective fever and chills for 1 week. Patient also report a new onset: left 2nd toe pain that has occurred for 4 days. Patient denies hx of diabetes and trauma. SUBJ FEVER, CHILLS X 1 WEEK, NEW ONSET L 2ND TOE PAIN X 4 DAYS. NO HO DM. NO TRAUMA EXAM NAD NONTOXIC EXT L FOOT: 2ND TOE NO SWELLING. GEN TEND NO DEFORM SKIN +SUPERFICIAL ULCERATION TIP 2ND TOE, NO ERYTHEMA REMAINDER NEG (Dolores Puga) History Per: Patient History/Exam Limitations: no limitations Onset/Duration Of Symptoms: Days (x1 week) <Dolores Puga - Last Filed: 11/18/17 12:56> <LeylaLena Stiles - Last Filed: 11/19/17 08:15> Time Seen by Provider: 11/18/17 12:07 Chief Complaint (Nursing): Fever Past Medical History Reviewed: Historical Data, Nursing Documentation, Vital Signs - Medical History PMH: HTN Family History: States: Unknown Family Hx - Social History Hx Alcohol Use: No Hx Substance Use: No - Immunization History Hx Tetanus Toxoid Vaccination: Yes Hx Influenza Vaccination: No Hx Pneumococcal Vaccination: (unk) <Dolores Puga - Last Filed: 11/18/17 12:56> Vital Signs: Last Vital Signs Temp 98 F 11/18/17 14:14 Pulse 76 11/18/17 14:14 Resp 18 11/18/17 14:14 BP 156/73 H 11/18/17 14:14 Pulse Ox 98 11/18/17 14:14 Review Of Systems Except As Marked, All Systems Reviewed And Found Negative. Constitutional: Positive for: Fever (subjective). Negative for: Other (trauma; no hx of diabetes) Musculoskeletal: Positive for: Foot Pain (left 2nd toe pain) <Dolores Puga - Last Filed: 11/18/17 12:56> Physical Exam - Physical Exam Appears: Well, Non-toxic, No Acute Distress Skin: Normal Color, Warm, Dry Head: Atraumatic, Normacephalic Eye(s): bilateral: Normal Inspection Neck: Normal ROM, Supple Chest: Symmetrical, No Deformity Cardiovascular: Rhythm Regular Respiratory: Normal Breath Sounds Gastrointestinal/Abdominal: Soft, No Tenderness Back: No CVA Tenderness Extremity: Tenderness (general tenderness to left second toe ), No Deformity ( left 2nd toe), No Swelling (left 2nd toe), Other (+ superficial ulceration tip on left foot 2nd toe; no erythema) Pulses: Left Dorsalis Pedis: Normal, Right Dorsalis Pedis: Normal Neurological/Psych: Oriented x3, Normal Speech, Normal Motor, Normal Sensation, Normal Reflexes Gait: Steady <EddDolores - Last Filed: 11/18/17 12:56> ED Course And Treatment - Laboratory Results Result Diagrams: 11/18/17 12:41 O2 Sat by Pulse Oximetry: 98 (RA) Pulse Ox Interpretation: Normal Progress Note: Impression: patient with subjective fever and left foot, 2nd toe pain. Plans: -- blood work. -- CXR. -- XR left foot 2nd digit. -- UA. Reassess: Patient is resting comfortably, and is afebrile at this time. Clinical signs and symptoms are not suggestive of sepsis, meningitis, UTI, pneumonia, intra-abdominal pathology, or cellulitis. Patient instructed to f/u with PCP in 1-2 days. <EddDolores - Last Filed: 11/18/17 12:56> - Laboratory Results Result Diagrams: 11/18/17 12:41 11/18/17 12:41 <Lena aMyer - Last Filed: 11/19/17 08:15> Progress - Data Reviewed Data Reviewed: Lab, Diagnostic imaging, Old records <EddDolores - Last Filed: 11/18/17 12:56> Disposition Counseled Patient/Family Regarding: Studies Performed, Diagnosis - Disposition Disposition Time: 13:00 - POA Present On Arrival: Poor Glycemic Control <EddDolores - Last Filed: 11/18/17 12:56> Counseled Patient/Family Regarding: Studies Performed, Diagnosis, Need For Followup, Rx Given - Disposition Disposition Time: 13:30 <Lena Mayer - Last Filed: 11/19/17 08:15> - Disposition Referrals: [facility] [Outside] Podiatry Clinic [Outside] Disposition: HOME/ ROUTINE Condition: STABLE Prescriptions: Cephalexin [Keflex] 500 mg PO BID #14 capsule Naproxen 375 mg PO BID PRN #20 tablet PRN Reason: pain Forms: [facility] (Yemeni), General Discharge Instructions Print Language: TELUGU - Clinical Impression Clinical Impression: Toe pain, Fever, Toe ulcer - Scribe Statement The provider has reviewed the documentation as recorded by the Scribe <Dolores Puga - Last Filed: 11/18/17 12:56> <Lena Mayer - Last Filed: 11/19/17 08:15> - Scribe Statement Looney Do (Dolores Puga) Provider Attestation: All medical record entries made by the Scribe were at my direction and personally dictated by me. I have reviewed the chart and agree that the record accurately reflects my personal performance of the history, physical exam, medical decision making, and the department course for this patient. I have also personally directed, reviewed, and agree with the discharge instructions and disposition. (Dolores Puga) Physician Patient Turnover Patient Signed Over To: Lena Mayer Handoff Comments: LABS, DISPO <Dolores Puga - Last Filed: 11/18/17 12:56> Addendum <Dolores Puga - Last Filed: 11/18/17 12:56> <Lena Mayer - Last Filed: 11/19/17 08:15> Addendum: 11/18/17 13:55 Patient resting comfortably, c/o mild headache. Blood work unremarkable, vitals WNL. Left 2nd toe with small <0.5cm ulcer on tip. Will give patient Keflex for mild wound/possibly developing cellulitis. Patient instructed to follow up with PMD/clinic in 1-2 days, and with podiatry within 1 week. He understands he should return to ED if symptoms worsen. (Lena Mayer)
[2017-11-18 12:52] LABS: BASO # 0.1 K/uL (0.0-0.2); BASO % 0.5 % (0.0-2.0); EOS % 0.4 % (0.0-4.0); HEMOGLOBIN 12.1 g/dL (12.0-18.0); LYMPH # 1.6 K/uL (1.0-4.3); LYMPH % 16.2 % (20.0-40.0); MEAN CORPUSCULAR HEMOGLOBIN 29.5 pg (27.0-31.0); MEAN CORPUSCULAR HGB CONC 33.5 g/dL (33.0-37.0); MEAN PLATELET VOLUME 8.3 fL (7.2-11.7); MONO # 0.9 K/uL (0.0-0.8); MONO % 9.6 % (0.0-10.0); NEUT # 7.1 K/uL (1.8-7.0); NEUT % 73.3 % (50.0-75.0); RBC 4.1 Mil/uL (4.40-5.90); RED CELL DISTRIBUTION WIDTH 13.7 % (11.5-14.5)
[2017-11-18 12:56] LABS: WHITE BLOOD COUNT 9.7 K/uL (4.8-10.8)
[2017-11-18 13:07] LABS: BLOOD UREA NITROGEN 15 mg/dL (9-20); CALCIUM 9.2 mg/dl (8.6-10.4); GFR AFRICAN-AMERICAN > 60; GFR NON-AFRICAN AMERICAN > 60
[2017-11-18 13:08] LABS: SQUAMOUS EPITHIAL 3 /hpf (0-5); URINE BILIRUBIN NEGATIVE (NEGATIVE); URINE BLOOD NEGATIVE (NEGATIVE); URINE CLARITY Clear (Clear); URINE COLOR Amber (YELLOW); URINE GLUCOSE (UA) NORMAL (Normal); URINE LEUKOCYTE ESTERASE NEG Leu/uL (Negative); URINE PROTEIN 2+ mg/dL (NEGATIVE)
[2017-11-18] MEDS ORDERED: Naproxen 550 mg Tab PO STA (13:54)
[2017-11-18] MEDS ORDERED: Naproxen 550 mg Tab PO ONE (14:10)
[2017-11-18 14:15] VITALS: BP 156/73; PULSE 76; TEMP 98
--- NOTE | 2017-11-18 14:27 | RAD ---
Date of service: 11/18/2017 PROCEDURE: Left foot attention 2nd toe HISTORY: PAIN COMPARISON: Not available TECHNIQUE: Three views of left foot attention 2nd digit FINDINGS: No evidence of fracture. No lytic or blastic osseous lesion. The joint spaces are preserved. The articular surfaces are smooth. There is soft tissue swelling seen about the distal aspect of the 2nd digit. IMPRESSION: No acute fracture.
--- NOTE | 2017-11-18 14:30 | RAD ---
Date of service: 11/18/2017 HISTORY: FEVER COMPARISON: No prior. TECHNIQUE: Chest PA and lateral FINDINGS: LUNGS: Left parahilar opacity that does not silhouette the left heart border. Suspicious for superior segment lower lobe infiltrate. This is not clearly evident in the lateral projection. Follow-up advised. No other abnormal opacity elsewhere. PLEURA: No significant pleural effusion identified. No pneumothorax apparent. CARDIOVASCULAR: Normal. OSSEOUS STRUCTURES: No significant abnormalities. VISUALIZED UPPER ABDOMEN: Normal. OTHER FINDINGS: None. IMPRESSION: Suspected left lower lobe superior segment infiltrate. Possible pneumonia. Follow-up advised.
== END 2017-11-18 14:14 | disposition home or self-care (01) ==
LOC: C.ER 11:45
DX: R50.9 Fever, unspecified (principal); L97.529 Non-pressure chronic ulcer of other part of left foot with unspecified severity; M79.675 Pain in left toe(s)

== ENCOUNTER 2017-11-21 10:38 | Emergency (ER) | payer OTHER ==
[2017-11-21 10:43] VITALS: RESP 18
[2017-11-21] MEDS ORDERED: Sodium Chloride 0.9% 1,000 ML IV ONE (11:04)
[2017-11-21] MEDS ORDERED: Azithromycin 500 MG in Sodium Chloride 0.9% 250 ML IVPB STA (11:05)
--- NOTE | 2017-11-21 11:13 | C.PDOC ---
History Of Present Illness 52 year old male presents to ED c/o headache, body aches, fever, and cough for the past week. Pt was evaluated 3 days ago for fever with diagnosis of viral illness. CXR at that time showed left lower infiltrate and is taking antibiotics for it. Denies visual changes, dizziness, chest pain, or shortness of breath. Time Seen by Provider: 11/21/17 10:53 Chief Complaint (Nursing): Headache History Per: Patient History/Exam Limitations: no limitations Past Medical History Reviewed: Historical Data, Nursing Documentation, Vital Signs Vital Signs: Last Vital Signs Temp 100.8 F H 11/21/17 10:41 Pulse 107 H 11/21/17 10:41 Resp 18 11/21/17 10:41 BP 121/84 11/21/17 10:41 Pulse Ox 98 11/21/17 12:12 - Medical History PMH: HTN Family History: States: Unknown Family Hx - Social History Hx Alcohol Use: No Hx Substance Use: No - Immunization History Hx Tetanus Toxoid Vaccination: Yes Hx Influenza Vaccination: No Hx Pneumococcal Vaccination: (unk) Review Of Systems Except As Marked, All Systems Reviewed And Found Negative. Constitutional: Positive for: Fever, Chills, Other (body aches) Cardiovascular: Negative for: Chest Pain, Palpitations, Light Headedness Respiratory: Positive for: Cough. Negative for: Shortness of Breath Gastrointestinal: Negative for: Nausea, Vomiting Neurological: Positive for: Headache. Negative for: Weakness, Numbness, Dizziness Physical Exam - Physical Exam Appears: Non-toxic, No Acute Distress Skin: Normal Color, Warm, Dry Head: Atraumatic, Normacephalic Eye(s): bilateral: Normal Inspection Nose: Normal Oral Mucosa: Moist Neck: Normal ROM, Supple, No Other (no nuchal rigidity) Chest: Symmetrical Cardiovascular: Rhythm Regular Respiratory: Normal Breath Sounds, No Rales, No Rhonchi, No Wheezing Gastrointestinal/Abdominal: Soft, No Tenderness Extremity: Normal ROM, No Deformity, No Other ((-)Kernig's sign (-)Babinski sign ) Neurological/Psych: Oriented x3, Normal Speech ED Course And Treatment - Laboratory Results Result Diagrams: 11/21/17 11:24 11/21/17 11:24 O2 Sat by Pulse Oximetry: 98 (RA) Pulse Ox Interpretation: Normal Medical Decision Making Medical Decision Making: Blood work, UA, CXR ordered and reviewed. Pt was given Toradol, Tylenol, Rocephin, Azithromycin, and IV fluids. Impression: Pneumonia Pt does not demonstrate signs of meningitis, will treat pneumonia as documented in CXR. patient resting comfortably, abic started for pneumonia. will discharge home and advise follow up with pmd within 2 days. Disposition Counseled Patient/Family Regarding: Studies Performed, Diagnosis, Need For Followup, Rx Given - Disposition Referrals: [facility] [Outside] Disposition: HOME/ ROUTINE Disposition Time: 12:12 Condition: STABLE Additional Instructions: follow up with your doctor or medical clinic within 2 days call to make an appointment take medications as prescribed return to ER if symptoms worsens or progress Prescriptions: Azithromycin [Zithromax] 250 mg PO DAILY #4 tab Naproxen [Naprosyn] 500 mg PO BID PRN #16 tab PRN Reason: Pain, Moderate (4-7) Instructions: Pneumonia in Adults Forms: Gen Discharge Inst Beninese, [facility] (Beninese), Work Excuse Print Language: LEBANESE - Clinical Impression Clinical Impression: Pneumonia - Scribe Statement The provider has reviewed the documentation as recorded by the Scribe KP All medical record entries made by the Scribe were at my direction and personally dictated by me. I have reviewed the chart and agree that the record accurately reflects my personal performance of the history, physical exam, medical decision making, and the department course for this patient. I have also personally directed, reviewed, and agree with the discharge instructions and disposition.
[2017-11-21 11:29] LABS: BASO # 0.1 K/uL (0.0-0.2); BASO % 0.8 % (0.0-2.0); EOS % 0.1 % (0.0-4.0); HEMOGLOBIN 10.4 g/dL (12.0-18.0); LYMPH % 13.9 % (20.0-40.0); MEAN CELL VOLUME 87.8 fL (80.0-94.0); MEAN CORPUSCULAR HEMOGLOBIN 29.2 pg (27.0-31.0); MEAN CORPUSCULAR HGB CONC 33.3 g/dL (33.0-37.0); MEAN PLATELET VOLUME 9.1 fL (7.2-11.7); MONO # 1.7 K/uL (0.0-0.8); MONO % 11.7 % (0.0-10.0); NEUT # 10.4 K/uL (1.8-7.0); NEUT % 73.5 % (50.0-75.0); NRBC % 0.1 % (0.0-2.0); RBC 3.56 Mil/uL (4.40-5.90); RED CELL DISTRIBUTION WIDTH 13.6 % (11.5-14.5); WHITE BLOOD COUNT 14.2 K/uL (4.8-10.8)
--- NOTE | 2017-11-21 11:44 | RAD ---
HISTORY: COMPARISON: No prior. TECHNIQUE: Chest PA and lateral FINDINGS: LINES AND TUBES: None. LUNG AND PLEURA: The lungs are well inflated. There is focal consolidation in the lingula No pleural effusion or pneumothorax. HEART AND MEDIASTINUM: The heart is not enlarged. The hilar and mediastinal contours are within normal limits. SKELETAL STRUCTURES: The bony structures are within normal limits for the patient's age. VISUALIZED UPPER ABDOMEN: Normal. OTHER FINDINGS: None. IMPRESSION: Focal consolidation in the lingula most compatible with pneumonia. However follow-up after medical management is recommended to ensure complete resolution.
[2017-11-21 11:50] LABS: ALBUMIN 4.2 g/dL (3.5-5.0); ALT/SGPT 80 U/L (21-72); AST/SGOT 62 U/L (17-59); BLOOD UREA NITROGEN 17 mg/dL (9-20); CALCIUM 9.3 mg/dl (8.6-10.4); GFR AFRICAN-AMERICAN > 60; GFR NON-AFRICAN AMERICAN > 60
[2017-11-21] MEDS ORDERED: cefTRIAXone IV 1 gm in Dextros 50 ML IVPB ONE (11:54)
[2017-11-21] MEDS ORDERED: Sodium Chloride 0.9% 1,000 ML ONE (11:54)
[2017-11-21 12:02] LABS: URINE BACTERIA RARE (<OCC); URINE BILIRUBIN NEGATIVE (NEGATIVE); URINE BLOOD NEGATIVE (NEGATIVE); URINE CLARITY Clear (Clear); URINE COLOR Amber (YELLOW); URINE GLUCOSE (UA) NORMAL (Normal); URINE HYALINE CAST 0-2 /lpf (0-2); URINE LEUKOCYTE ESTERASE NEG Leu/uL (Negative); URINE PROTEIN 2+ mg/dL (NEGATIVE)
[2017-11-21 12:27] VITALS: BP 124/75; PULSE 97; TEMP 100.9; O2SAT 97
== END 2017-11-21 13:39 | disposition home or self-care (01) ==
LOC: C.ER 10:38
DX: J18.9 Pneumonia, unspecified organism (principal); I10 Essential (primary) hypertension
CPT/HCPCS: 71046; 80053; 81001; 85025; 87040; 96365; 96375; 99285; J0456; J0696; J1885; J7030; J7050

== ENCOUNTER 2017-11-25 11:22 | Emergency (ER) | payer OTHER ==
[2017-11-25 11:32] VITALS: BP 146/78; PULSE 86; RESP 18; TEMP 97.8; O2SAT 99
--- NOTE | 2017-11-25 12:14 | C.PDOC ---
History Of Present Illness 52 y/o male comes to ED for evaluation s/p antibiotics for pneumonia; pt finished curse of Zithromax today; sts no more fever,chills, or cough, feels well. pt also c/o foul smelling 'pus' coming out of his upper back for several days. Time Seen by Provider: 11/25/17 11:40 Chief Complaint (Nursing): Medical Clearance History Per: Patient History/Exam Limitations: no limitations Current Symptoms Are (Timing): Gone Reports Recently: Seen In ED Past Medical History Reviewed: Historical Data, Nursing Documentation, Vital Signs Vital Signs: Last Vital Signs Temp 97.8 F 11/25/17 11:29 Pulse 86 11/25/17 11:29 Resp 18 11/25/17 11:29 BP 146/78 11/25/17 11:29 Pulse Ox 99 11/25/17 19:42 - Medical History PMH: HTN, Hypercholesterolemia Surgical History: No Surg Hx Family History: States: Unknown Family Hx - Social History Hx Alcohol Use: No Hx Substance Use: No - Immunization History Hx Tetanus Toxoid Vaccination: Yes Hx Influenza Vaccination: No Hx Pneumococcal Vaccination: Yes Review Of Systems Constitutional: Negative for: Fever, Chills Cardiovascular: Negative for: Chest Pain Respiratory: Negative for: Cough, Shortness of Breath Skin: Positive for: Other ('pus' from skin upper back). Negative for: Rash Neurological: Negative for: Weakness, Numbness Physical Exam - Physical Exam Appears: Non-toxic, No Acute Distress Skin: Warm, Dry, Other (flat area to upper back with waxy, malodorous discharge (consistent with cystic material). no surrounding erythema, warmth or swelling ) Head: Atraumatic, Normacephalic Eye(s): bilateral: Normal Inspection Oral Mucosa: Moist Neck: Supple Chest: Symmetrical, No Deformity, No Tenderness Cardiovascular: Rhythm Regular, No Murmur Respiratory: Normal Breath Sounds, No Rales, No Rhonchi, No Wheezing Extremity: Normal ROM Neurological/Psych: Normal Speech, Normal Cognition ED Course And Treatment O2 Sat by Pulse Oximetry: 99 (on RA) Pulse Ox Interpretation: Normal Medical Decision Making Medical Decision Making: pt feeling well after finishing tx for pna, no feve, chills., neck evaluated; appears to be epidermoid cyst, no signs of infections. d/c home, f.u med clinic and derm Disposition Counseled Patient/Family Regarding: Diagnosis, Need For Followup - Disposition Referrals: [facility] [Outside] Disposition: HOME/ ROUTINE Disposition Time: 12:16 Condition: GOOD Additional Instructions: Por favor lamine un seguimiento en la clnica mdica en las 1-2 semanas; Recomiende repetir la radiografa de trax para evaluar la resolucin de la neumona en un mes. Si el quiste en rosenberg espalda le molesta, puede hacer un seguimiento con el dermatlogo. Jason la lista de proveedores que le dieron. Regrese a la neo de emergencias por cualquier empeoramiento de los sntomas. Please follow up in medical clinic in the the 1-2 weeks; Recommend repeat chest xray to evaluate resolution of pneumonia in one month. If the cyst on your back bothers you, you can follow up with transportation assistant. See list of providers given to you. Return to ED for any worsening symptoms. Instructions: Epidermal Cyst (DC) Forms: Gen Discharge Inst Georgian, [facility] (Georgian) Print Language: ICELANDIC - Clinical Impression Clinical Impression: Medical assessment, Epidermal cyst
== END 2017-11-25 12:23 | disposition home or self-care (01) ==
LOC: C.ER 11:22
DX: Z04.8 Encounter for examination and observation for other specified reasons (principal); L72.0 Epidermal cyst

== ENCOUNTER 2017-12-01 21:53 | Emergency (ER) | payer OTHER ==
--- NOTE | 2017-12-01 23:10 | C.PDOC ---
History Of Present Illness 52 y/o male presents to the emergency department after falling down from some wet steps at 0300 at home. Patient currently complains of head pain, neck pain m chest wall pain and laceration to left 5th digit but denies any LOC, fever, chills, nausea, or vomiting. Remembers the event - HPI Time Seen by Provider: 12/01/17 23:10 Chief Complaint (Nursing): Trauma History Per: Patient History/Exam Limitations: no limitations Onset/Duration Of Symptoms: Hrs Injury Occurred (Timing): Days Ago: (1) Location Of Injury: Left: Hand (laceration to 5th digit), Anterior: Chest, Posterior: Neck Severity: Severe Pain Scale Rating Of: 5 Recent travel outside of the [place]: No Additional History Per: Patient - Fall Fall:Prior To Injury: Tripped, Slipped Past Medical History Reviewed: Historical Data, Nursing Documentation, Vital Signs Vital Signs: Last Vital Signs Temp 98.1 F 12/02/17 06:00 Pulse 74 12/02/17 06:00 Resp 13 12/02/17 06:00 BP 136/92 H 12/02/17 06:00 Pulse Ox 98 12/02/17 06:00 - Medical History PMH: HTN, Hypercholesterolemia Family History: States: No Known Family Hx - Social History Hx Alcohol Use: No Hx Substance Use: No - Immunization History Hx Tetanus Toxoid Vaccination: Yes Hx Influenza Vaccination: No Hx Pneumococcal Vaccination: Yes Review Of Systems Constitutional: Negative for: Fever, Chills Eyes: Negative for: Vision Change ENT: Negative for: Throat Pain Cardiovascular: Negative for: Chest Pain, Palpitations Respiratory: Negative for: Shortness of Breath Gastrointestinal: Negative for: Nausea, Vomiting, Diarrhea Musculoskeletal: Positive for: Neck Pain, Other (head pain) Skin: Positive for: Lesions (abrassions r knee), Bruising, Other (poss laceration to left 5th digit) Neurological: Negative for: Weakness, Numbness Psych: Negative for: Anxiety Physical Exam - Physical Exam Appears: Non-toxic Skin: Warm, Dry, Ecchymosis (scalp), Other (laceration of left palmar region of 5th digit) Head: Normacephalic, Abrasion (Numerous), Other (Numerous contusions, no crepitus palpated) Eye(s): bilateral: Normal Inspection, PERRL, EOMI Ear(s): Bilateral: Normal Nose: No Deformity, No Septal Hematoma Oral Mucosa: Moist Neck: Normal ROM, Trachea Midline, No Midline Cervical Tenderness, No Paracervical Tenderness, Supple Chest: Symmetrical, Tenderness (diffuse to palpitation), Other (No crepitus) Cardiovascular: Rhythm Regular Respiratory: No Rales, No Rhonchi, No Wheezing Gastrointestinal/Abdominal: Soft, No Tenderness, No Distention, No Guarding Back: Normal Inspection Extremity: Capillary Refill (less than 2 seconds), Other (Left hand full ROM) Extremity: Bilateral: No Pedal Edema, Normal Color And Temperature, Normal ROM Pulses: Left Radial: Normal, Right Radial: Normal, Left Dorsalis Pedis: Normal, Right Dorsalis Pedis: Normal Neurological/Psych: Oriented x3, Normal Speech, Normal Cognition Gait: Steady ED Course And Treatment - Laboratory Results Result Diagrams: 12/01/17 23:40 12/01/17 23:40 O2 Sat by Pulse Oximetry: 98 (RA) Pulse Ox Interpretation: Normal - Other Rad hand X-Ray: Interpreted by Me, Viewed By Me Interpretation: no fracture or dislocation Progress Note: Blood work, CT C-spine, CT Head, CT chest/abd/pel, left hand x- ray, EKG, and urinalysis ordered. Morphine and IV fluids administered. ambulating without difficulty Reevaluation Time: 05:06 Reassessment Condition: Improved Medical Decision Making Medical Decision Making: Upon provider reevaluation patient is feeling better, is medically stable, and requires no further treatment in the ED at this time. Patient will be discharged home with Rx for keflex and tramadol . Counseling was provided and all questions were answered regarding diagnosis and need for follow up with the referred clinic. There is agreement to discharge plan. Return if symptoms persist or worsen. Disposition Counseled Patient/Family Regarding: Studies Performed, Diagnosis, Need For Followup, Rx Given - Disposition Referrals: [facility] [Outside] [facility] [Outside] Disposition: HOME/ ROUTINE Disposition Time: 23:10 Condition: FAIR Additional Instructions: Please return if symptoms recur Prescriptions: Cephalexin [Keflex] 500 mg PO TID #21 capsule traMADol [Ultram] 50 mg PO QID PRN #15 tab PRN Reason: Pain, Severe (8-10) Instructions: Wound Care (DC), Contusion (DC), Minor Head Injury (DC), Skin Abrasions (DC) Forms: [facility] (Qatari) Print Language: SLOVAK - Clinical Impression Clinical Impression: Fall, Head contusion, Minor head injury without loss of consciousness, Abrasion head - Scribe Statement The provider has reviewed the documentation as recorded by the Savannaibcaden Hutchinson Provider Attestation: All medical record entries made by the Savannaibcaden were at my direction and personally dictated by me. I have reviewed the chart and agree that the record accurately reflects my personal performance of the history, physical exam, medical decision making, and the department course for this patient. I have also personally directed, reviewed, and agree with the discharge instructions and disposition.
[2017-12-01] MEDS ORDERED: Sodium Chloride 0.9% 1,000 ML IV ONE (23:17)
[2017-12-01 23:43] LABS: BASO # 0.2 K/uL (0.0-0.2); BASO % 1.5 % (0.0-2.0); EOS # 0.1 K/uL (0.0-0.7); EOS % 1.1 % (0.0-4.0); HEMOGLOBIN 10.3 g/dL (12.0-18.0); LYMPH % 18.8 % (20.0-40.0); MEAN CELL VOLUME 89.3 fL (80.0-94.0); MEAN CORPUSCULAR HGB CONC 33.6 g/dL (33.0-37.0); MEAN PLATELET VOLUME 7.6 fL (7.2-11.7); MONO # 0.5 K/uL (0.0-0.8); MONO % 4.5 % (0.0-10.0); NEUT # 8.1 K/uL (1.8-7.0); NEUT % 74.1 % (50.0-75.0); RBC 3.44 Mil/uL (4.40-5.90); RED CELL DISTRIBUTION WIDTH 14.7 % (11.5-14.5); WHITE BLOOD COUNT 10.9 K/uL (4.8-10.8)
[2017-12-01 23:56] LABS: ALB/GLOB RATIO 1.2 (1.0-2.1); ALBUMIN 4.2 g/dL (3.5-5.0); ALT/SGPT 109 U/L (21-72); AST/SGOT 110 U/L (17-59); BLOOD UREA NITROGEN 17 mg/dL (9-20); CALCIUM 9.1 mg/dl (8.6-10.4); GFR AFRICAN-AMERICAN > 60; GFR NON-AFRICAN AMERICAN > 60
[2017-12-02] LABS: VENOUS BLOOD GAS BASE EXCESS -0.6 mmol/L (0.0-2.0); VENOUS BLOOD GAS PCO2 46 mmHg (40-60); VENOUS BLOOD GAS PO2 29 mm/Hg (30-55); VENOUS BLOOD PH 7.35 (7.32-7.43)
[2017-12-02 00:18] LABS: SQUAMOUS EPITHIAL < 1 /hpf (0-5); URINE BILIRUBIN NEGATIVE (NEGATIVE); URINE BLOOD NEGATIVE (NEGATIVE); URINE CLARITY Clear (Clear); URINE COLOR Yellow (YELLOW); URINE GLUCOSE (UA) NORMAL (Normal); URINE LEUKOCYTE ESTERASE NEG Leu/uL (Negative); URINE PROTEIN 1+ mg/dL (NEGATIVE); URINE UROBILINOGEN NORMAL mg/dL (0.2-1.0)
[2017-12-02 03:06] VITALS: O2SAT 98
[2017-12-02] MEDS ORDERED: ceFAZolin 1 gm in NS 1 GM/100 ML BAG IVPB ONE (03:17)
[2017-12-02] MEDS ORDERED: Tdap Vaccine 0.5 ml Vial (10-64 yrs) IM ONE ×2 (05:15→05:22)
[2017-12-02 06:01] VITALS: BP 136/92; PULSE 74; RESP 13; TEMP 98.1
--- NOTE | 2017-12-02 08:07 | RAD ---
PROCEDURE: Left Hand Radiographs. HISTORY: fall COMPARISON: None. FINDINGS: BONES: . No fracture. JOINTS: osteoarthritic changes. SOFT TISSUES: Normal. OTHER FINDINGS: Well corticated ossifications project over dorsal aspect radiocarpal and midcarpal joint IMPRESSION: No fracture appreciated. Mild arthrosis -distal interphalangeal joints most notably. Well corticated ossifications dorsal mid carpus radiocarpal joints combination developmental variants and/or loose bodies and/or old osseous avulsions-considerations.
--- NOTE | 2017-12-02 08:48 | CT ---
Date of service: 12/02/2017 PROCEDURE: CT HEAD WITHOUT CONTRAST. HISTORY: R/O Bleed COMPARISON: None available. TECHNIQUE: Axial computed tomography images were obtained through the head/brain without intravenous contrast. Radiation dose: Total exam DLP = 939 mGy-cm. This CT exam was performed using one or more of the following dose reduction techniques: Automated exposure control, adjustment of the mA and/or kV according to patient size, and/or use of iterative reconstruction technique. FINDINGS: HEMORRHAGE: No intracranial hemorrhage. BRAIN: No mass effect or edema. No atrophy or chronic microvascular ischemic changes. VENTRICLES: Unremarkable. No hydrocephalus. CALVARIUM: Unremarkable. PARANASAL SINUSES: Partial opacification of the paranasal sinuses. MASTOID AIR CELLS: Unremarkable as visualized. No inflammatory changes. OTHER FINDINGS: Posterior parietal subcutaneous soft tissue hematoma. IMPRESSION: Posterior parietal subcutaneous soft tissue hematoma. Sinus mucosal disease. If symptoms persists, consider correlation with MRI. These findings were preliminarily reported at 1:43 a.m. on 12/02/[address] Ulysses Bonilla from [facility].
--- NOTE | 2017-12-02 09:54 | CT ---
CT cervical spine History: Neck pain. Comparison: None available. Technique: Multiple contiguous axial images were performed through the cervical spine without the use of intravenous contrast. Subsequently, sagittal and coronal reformatted images were obtained. This CT exam was performed using one or more of the following dose reduction techniques: Automated exposure control, adjustment of the mA and/or kV according to patient size, and/or use of iterative reconstruction technique. Findings: Reversal of the normal cervical lordosis. Mild loss height of the inferior endplates of the C4 and C5 vertebral bodies. Anterior osteophytosis at C4-5, C5-6, and C6-7 levels. Productive change at the atlantodental interval. No evidence of acute displaced fracture. Right posterior parietal subcutaneous soft tissue hematoma. Incidentally noted is a suggestion of a small nodule in the left thyroid lobe. Correlation with thyroid ultrasound maybe helpful if clinically indicated. Impression: Degenerative changes. If pain persists, consider MRI. Incidentally noted is a suggestion of a small nodule in the left thyroid lobe. Correlation with thyroid ultrasound maybe helpful if clinically indicated. These findings were preliminarily reported at 1:46 a.m. on 12/02/[address] Ulysses Bonilla from [facility].
--- NOTE | 2017-12-02 11:59 | CARD ---
APPROVED REPORT Date of service: 12/01/2017 EKG Measurement Heart [id number] <Conclusion> Normal sinus rhythm Possible Left atrial enlargement Left ventricular hypertrophy Nonspecific T wave abnormality Abnormal ECG
--- NOTE | 2017-12-02 13:35 | CT ---
Date of service: 12/02/2017 PROCEDURE: CT Chest, Abdomen and Pelvis with intravenous contrast HISTORY: fall down steps, pain COMPARISON: No prior similar study available for comparison. TECHNIQUE: IV dose administered: 100 mL Visipaque 320. Axial and reformatted coronal and sagittal CT images of the chest abdomen and pelvis were obtained after IV contrast administration. Radiation dose: Total exam DLP = 3689.94 mGy-cm. This CT exam was performed using one or more of the following dose reduction techniques: Automated exposure control, adjustment of the mA and/or kV according to patient size, and/or use of iterative reconstruction technique. FINDINGS: CT CHEST WITH CONTRAST: LUNGS: There are a space could consolidation and infiltrate at the lingula associated with air bronchogram suspicious for pneumonia. Small opacities at the right lung base likely atelectasis. MEDIASTINUM: The thoracic aorta is normal in caliber and shape. The main pulmonary artery is normal in size. The heart is mildly to moderately enlarged. LYMPH NODES: Mildly enlarged mediastinal lymph nodes are noted. PLEURA: Unremarkable. No pneumothorax. No pleural fluid. BONES: Unremarkable. OTHER FINDINGS: None. CT ABDOMEN AND PELVIS: LIVER: Unremarkable. No gross lesion or ductal dilatation. 3 millimeter calcification noted at the liver dome likely represent calcified granuloma. GALLBLADDER AND BILE DUCTS: Unremarkable. PANCREAS: Unremarkable. No gross lesion or ductal dilatation. SPLEEN: Unremarkable. ADRENALS: Unremarkable. No mass. KIDNEYS AND URETERS: Unremarkable. No hydronephrosis. No solid mass. VASCULATURE: Unremarkable. No aortic aneurysm. BOWEL: Unremarkable. No obstruction. No gross mural thickening. APPENDIX: Normal appendix. PERITONEUM: Unremarkable. No free fluid. No free air. LYMPH NODES: Mildly enlarged bilateral pelvic sidewall and internal iliac chain lymph nodes noted. BLADDER: Mild to moderate urinary bladder wall thickening. REPRODUCTIVE: The prostate is enlarged. BONES: No acute fracture. T12 hemangioma is noted. OTHER FINDINGS: None. IMPRESSION: Airspace consolidation with air bronchogram at the lingula suggestive of pneumonia or lung contusion. No evidence of pleural effusion or pneumothorax. Small opacities at the right lung base likely atelectasis. Cardiomegaly. Prominent mediastinal lymph nodes. No evidence of acute pathology in the abdomen and pelvis. Enlarged prostate. Prominent bilateral pelvic sidewall lymph nodes. Preliminary report was submitted by [facility].
== END 2017-12-02 06:02 | disposition home or self-care (01) ==
LOC: C.ER 21:53
DX: S00.91XA Abrasion of unspecified part of head, initial encounter (principal); W10.9XXA Fall (on) (from) unspecified stairs and steps, initial encounter; S09.90XA Unspecified injury of head, initial encounter; I10 Essential (primary) hypertension; E78.00 Pure hypercholesterolemia, unspecified
CPT/HCPCS: 70450; 71260; 72125; 73130; 74177; 80053; 81001; 82803; 85025; 86850; 86900; 90471; 90715; 93005; 96374; 96375; 96376; 99285; J0690; J1885; J2270; J7030

== ENCOUNTER 2017-12-03 11:16 | Emergency (ER) | payer OTHER ==
[2017-12-03 11:41] VITALS: RESP 20; O2SAT 96
--- NOTE | 2017-12-03 12:04 | C.PDOC ---
History Of Present Illness 52yo male, presents to the emergency department for evaluation of reproducible chest pain and right scapular pain s/p mechanical fall two days ago. Patient states he was seen in ED after fall and had a series of negative CT scsnd. He returns today because pain persists. Denies any LOC, numbness/weakness, dizziness. Time Seen by Provider: 12/03/17 11:36 Chief Complaint (Nursing): Chest Pain History Per: Patient History/Exam Limitations: no limitations Quality: Aching Exacerbating Factors: Movement Recent travel outside of the [facility]: No Past Medical History Reviewed: Historical Data, Nursing Documentation, Vital Signs Vital Signs: Last Vital Signs Temp 98.7 F 12/03/17 13:34 Pulse 80 12/03/17 13:34 Resp 20 12/03/17 13:34 BP 132/76 12/03/17 13:34 Pulse Ox 96 12/03/17 13:34 - Medical History PMH: HTN, Hypercholesterolemia Family History: States: No Known Family Hx - Social History Hx Alcohol Use: No Hx Substance Use: No - Immunization History Hx Tetanus Toxoid Vaccination: Yes Hx Influenza Vaccination: No Hx Pneumococcal Vaccination: Yes Review Of Systems Cardiovascular: Positive for: Chest Pain Musculoskeletal: Positive for: Shoulder Pain Neurological: Negative for: Weakness, Numbness Physical Exam - Physical Exam Appears: Non-toxic, No Acute Distress Skin: Warm, Dry, No Rash Head: Abrasion, Other (contusions) Eye(s): bilateral: Normal Inspection Nose: Normal Oral Mucosa: Moist Lips: Normal Appearing Neck: Normal ROM Chest: Tenderness (diffuse), No Subcutaneous Emphysema Cardiovascular: Rhythm Regular, No Murmur Respiratory: Normal Breath Sounds, No Accessory Muscle Use Gastrointestinal/Abdominal: Soft, No Tenderness Back: Other (R scapular tenderness) Extremity: Normal ROM, No Deformity Neurological/Psych: Oriented x3, Normal Speech Gait: Steady ED Course And Treatment ECG: Interpreted By Me ECG Rhythm: Sinus Rhythm ECG Interpretation: Normal Rate From EC O2 Sat by Pulse Oximetry: 96 Pulse Ox Interpretation: Normal (RA) - Radiology CXR: Interpreted by Me CXR Interpretation: Yes: No Acute Disease Progress Note: Treated with toradol IV. On re-evaluation feeling better, lungs clear Reassessment Condition: Improved Disposition Counseled Patient/Family Regarding: Studies Performed, Diagnosis, Need For Followup - Disposition Referrals: [facility] [Outside] [place] [Outside] Disposition: HOME/ ROUTINE Disposition Time: 13:15 Condition: IMPROVED Prescriptions: Naproxen [Naprosyn] 1 tab PO BID PRN #25 tab PRN Reason: Pain Instructions: Costochondritis Forms: [facility] (Urdu) Print Language: YEMENI - POA Present On Arrival: None - Clinical Impression Clinical Impression: Chest wall pain, Contusion, chest wall - Scribe Statement The provider has reviewed the documentation as recorded by the Scribe (Miguel Morgan) All medical record entries made by the Scribe were at my direction and personally dictated by me. I have reviewed the chart and agree that the record accurately reflects my personal performance of the history, physical exam, medical decision making, and the department course for this patient. I have also personally directed, reviewed, and agree with the discharge instructions and disposition.
--- NOTE | 2017-12-03 13:22 | RAD ---
HISTORY: COMPARISON: 11/21/2017. TECHNIQUE: Chest PA and lateral FINDINGS: LINES AND TUBES: None. LUNG AND PLEURA: The lungs are well inflated and clear. There is interval near complete resolution of pneumonia in the lingula. No pleural effusion or pneumothorax. HEART AND MEDIASTINUM: The heart is not enlarged. The hilar and mediastinal contours are within normal limits. SKELETAL STRUCTURES: The bony structures are within normal limits for the patient's age. VISUALIZED UPPER ABDOMEN: Normal. OTHER FINDINGS: None. IMPRESSION: Interval near complete resolution of lingular pneumonia. No acute findings.
[2017-12-03 13:34] VITALS: BP 132/76; PULSE 80; TEMP 98.7
--- NOTE | 2017-12-04 10:56 | CARD ---
APPROVED REPORT Date of service: 12/03/2017 EKG Measurement Heart [id number] <Conclusion> Normal sinus rhythm Moderate voltage criteria for LVH, may be normal variant Nonspecific T wave abnormality Abnormal ECG
== END 2017-12-03 13:34 | disposition home or self-care (01) ==
LOC: C.ER 11:16
DX: R07.89 Other chest pain (principal); S20.219A Contusion of unspecified front wall of thorax, initial encounter; W19.XXXA Unspecified fall, initial encounter; E78.00 Pure hypercholesterolemia, unspecified; I10 Essential (primary) hypertension
CPT/HCPCS: 71046; 93005; 96374; 99284; J1885

== ENCOUNTER 2017-12-15 21:12 | Emergency (ER) | payer OTHER ==
[2017-12-15 21:29] VITALS: RESP 20
[2017-12-15 23:28] LABS: BLOOD UREA NITROGEN 22 mg/dL (9-20); CALCIUM 9.1 mg/dl (8.6-10.4); GFR NON-AFRICAN AMERICAN > 60
--- NOTE | 2017-12-15 23:36 | C.PDOC ---
History Of Present Illness 52 year old male presents to the ED c/o anterior chest wall pain that worsens with movement, touch, coughing and sneezing for the past few days. Patient was seen in the ED s/p falling 15 stairs, patient had CTs of the head, chest, abdomen that were all negative at that time. Patient states he ran out of pain medications as well. Patient denies new trauma, fall, headache, palpitations, SOB, weakness, numbness. Time Seen by Provider: 12/15/17 22:36 Chief Complaint (Nursing): Back Pain History Per: Patient History/Exam Limitations: no limitations Onset/Duration Of Symptoms: Days Current Symptoms Are (Timing): Still Present Quality Of Discomfort: "Pain" Severity: None Exacerbating Factor(s): Movement Recent travel outside of the [place]: No Additional History Per: Patient Past Medical History Reviewed: Historical Data, Nursing Documentation, Vital Signs Vital Signs: Last Vital Signs Temp 98.1 F 12/15/17 21:23 Pulse 99 H 12/15/17 21:23 Resp 20 12/15/17 21:23 BP 135/84 12/15/17 21:23 Pulse Ox 96 12/15/17 23:41 - Medical History PMH: HTN, Hypercholesterolemia Surgical History: No Surg Hx Family History: States: Unknown Family Hx - Social History Hx Alcohol Use: No Hx Substance Use: No - Immunization History Hx Tetanus Toxoid Vaccination: Yes Hx Influenza Vaccination: No Hx Pneumococcal Vaccination: Yes Review Of Systems Except As Marked, All Systems Reviewed And Found Negative. Cardiovascular: Positive for: Chest Pain. Negative for: Palpitations Respiratory: Negative for: Shortness of Breath Physical Exam - Physical Exam Additional Physical Exam Comments: Constitutional: No acute distress. Head: Normocephalic. Atraumatic. Eyes: PERRL. ENT: Moist mucous membranes. Neck: Supple. Cardiovascular: Regular rate. Radial pulse 2+ bilaterally. Chest: Anterior chest wall tender to palpation. Respiratory: Clear to auscultation bilaterally. GI: Soft. Nontender. Nondistended. Back: No CVA tenderness. Musculoskeletal: No tenderness or swelling of extremities. Skin: No rash. Neurologic: Alert, no focal deficit. ED Course And Treatment - Laboratory Results Result Diagrams: 12/15/17 23:07 ECG: Interpreted By Me, Viewed By Me ECG Rhythm: Sinus Rhythm Interpretation Of ECG: NO ST elevations Rate From EC (BPM) O2 Sat by Pulse Oximetry: 96 (ON RA) Pulse Ox Interpretation: Normal Medical Decision Making Medical Decision Making: Plan: * CXR * Labs CXR no acute disease Disposition - Disposition Disposition: HOME/ ROUTINE Disposition Time: 23:48 Condition: STABLE Prescriptions: Naproxen 500 mg PO BID PRN #25 tablet PRN Reason: Pain, Moderate (4-7) Instructions: Costochondritis Forms: [facility] (Welsh) - Clinical Impression Clinical Impression: Chest wall pain - Scribe Statement The provider has reviewed the documentation as recorded by the Scribe Octavio Diaz All medical record entries made by the Scribe were at my direction and personally dictated by me. I have reviewed the chart and agree that the record accurately reflects my personal performance of the history, physical exam, medical decision making, and the department course for this patient. I have also personally directed, reviewed, and agree with the discharge instructions and disposition.
[2017-12-16 00:14] VITALS: BP 144/89; PULSE 92; TEMP 98; O2SAT 100
--- NOTE | 2017-12-16 08:01 | RAD ---
Date of service: 12/15/2017 HISTORY: chest pain s/p fall COMPARISON: 12/03/2017 TECHNIQUE: Chest PA and lateral FINDINGS: LUNGS: No active pulmonary disease. PLEURA: No significant pleural effusion identified. No pneumothorax apparent. CARDIOVASCULAR: Normal. OSSEOUS STRUCTURES: No significant abnormalities. VISUALIZED UPPER ABDOMEN: Normal. OTHER FINDINGS: None. IMPRESSION: No active disease.
--- NOTE | 2017-12-17 14:13 | CARD ---
APPROVED REPORT Date of service: 12/15/2017 EKG Measurement Heart [id number] <Conclusion> Normal sinus rhythm Nonspecific ST/T abnormality Abnormal ECG
== END 2017-12-16 00:14 | disposition home or self-care (01) ==
LOC: C.ER 21:12
DX: R07.89 Other chest pain (principal)

== ENCOUNTER 2018-08-18 12:22 | Emergency (ER) | payer OTHER ==
[2018-08-18 13:11] VITALS: TEMP 98.3
--- NOTE | 2018-08-18 14:42 | RAD ---
HISTORY: PRODUCTIVE COUGH COMPARISON: Chest x-ray performed 12/15/17 TECHNIQUE: Chest PA and lateral, 2 views FINDINGS: Examination limited by habitus. The patient is slightly rotated. LUNGS: No focal consolidation. Please note that chest x-ray has limited sensitivity for the detection of pulmonary masses. PLEURA: No significant pleural effusion identified. No definite pneumothorax . CARDIOVASCULAR: Heart size appears within normal limits. Atherosclerotic calcifications of the aorta. OSSEOUS STRUCTURES: No acute osseous abnormality identified. VISUALIZED UPPER ABDOMEN: Unremarkable. OTHER FINDINGS: None. IMPRESSION: No focal consolidation.
--- NOTE | 2018-08-18 14:49 | C.PDOC ---
History Of Present Illness 53-year-old male presents to the ED for evaluation of cough that is productive of white sputum and occasional headaches which began two days ago. Patient also complains of runny nose and sore throat. He reports previous history of pneumonia. He denies fever, chills, shortness of breath, chest pain. Time Seen by Provider: 08/18/18 13:24 Chief Complaint (Nursing): Cough, Cold, Congestion History Per: Patient History/Exam Limitations: no limitations Onset/Duration Of Symptoms: Days (2) Current Symptoms Are (Timing): Still Present Associated Symptoms: Sore Throat, Cough, Sputum (white ). denies: Fever, Chills Severity: Mild Past Medical History Reviewed: Historical Data, Nursing Documentation, Vital Signs Vital Signs: Last Vital Signs Temp 98.3 F 08/18/18 13:07 Pulse 98 H 08/18/18 13:07 Resp 20 08/18/18 13:07 BP 129/83 08/18/18 13:07 Pulse Ox 97 08/18/18 13:07 Primary Care Provider: Valerie Chacon - Medical History PMH: No Chronic Diseases, HTN, Hypercholesterolemia, Pneumonia Surgical History: No Surg Hx Family History: States: No Known Family Hx - Social History Hx Alcohol Use: No Hx Substance Use: No - Immunization History Hx Tetanus Toxoid Vaccination: Yes Hx Influenza Vaccination: No Hx Pneumococcal Vaccination: Yes Review Of Systems Constitutional: Negative for: Fever, Chills ENT: Positive for: Nose Congestion Cardiovascular: Negative for: Chest Pain, Palpitations Respiratory: Positive for: Cough, Sputum (white). Negative for: Shortness of Breath Gastrointestinal: Negative for: Nausea, Vomiting, Abdominal Pain, Diarrhea Skin: Negative for: Rash Physical Exam - Physical Exam Appears: Well, Non-toxic, No Acute Distress Skin: Normal Color, Warm, Dry Head: Normacephalic Eye(s): bilateral: Normal Inspection Ear(s): Bilateral: Normal Nose: Normal, No Discharge Oral Mucosa: Moist Throat: Normal, No Erythema, No Exudate Neck: Supple Cardiovascular: Rhythm Regular Respiratory: Normal Breath Sounds, No Rales, No Rhonchi, No Wheezing, Other (speaking in full sentences ) Gastrointestinal/Abdominal: Normal Exam, Bowel Sounds, Soft, No Tenderness, No Guarding, No Rebound Extremity: Normal ROM Neurological/Psych: Oriented x3 ED Course And Treatment O2 Sat by Pulse Oximetry: 97 (on RA) Pulse Ox Interpretation: Normal - Other Rad CXR X-Ray: Viewed By Me, Read By Radiologist Interpretation: HISTORY: PRODUCTIVE COUGH. COMPARISON: Chest x-ray performed 12/15/17. TECHNIQUE: Chest PA and lateral, 2 views. FINDINGS: Examination limited by habitus. The patient is slightly rotated. LUNGS: No focal consolidation. Please note that chest x-ray has limited sensitivity for the detection of pulmonary masses. PLEURA: No significant pleural effusion identified. No definite pneumothorax . CARDIOVASCULAR: Heart size appears within normal limits. Atherosclerotic calcifications of the aorta. OSSEOUS STRUCTURES: No acute osseous abnormality identified. VISUALIZED UPPER ABDOMEN: Unremarkable. OTHER FINDINGS: None. IMPRESSION: No focal consolidation. Progress Note: Patient has persistent cough and prior history of pneumonia, chest x-ray ordered and reviewed. CXR neg for infiltrates. Patient reassurred symptoms are likely viral, and that treatment is supportive. Rxs for tylenol and tessalon given. Patient instructed to follow up with PMD/clinic in 1-2 days, and he understands he should return to ED if symptoms worsen. Disposition Counseled Patient/Family Regarding: Studies Performed, Diagnosis, Need For Followup, Rx Given - Disposition Referrals: [facility] [Outside] Disposition: HOME/ ROUTINE Disposition Time: 14:50 Condition: STABLE Additional Instructions: FOLLOW UP IN THE MEDICAL CLINIC IN 1-2 DAYS USE MEDICATIONS NEEDED DRINK PLENTY OF FLUIDS YOUR HIGH BLOOD PRESSURE MEDICATION CAN CAUSE COUGH. IF SYMPTOMS CONTINUE LET YOUR DOCTOR KNOW. RETURN TO EMERGENCY ROOM IF YOUR SYMPTOMS BECOME WORSE SEGUIR EN LA CLNICA MDICA EN 1-2 OGDEN USAR MEDICAMENTOS AMRIT SE NECESITE BEBER MUCHO LQUIDO WARREN MEDICAMENTO A ODALYS PRESIN ARTERIAL PUEDE CAUSAR TOS. SI LOS SNTOMAS CONTINAN DEJE QUE WARREN MDICO SEA. VUELVA A LA MAXIME DE EMERGENCIA SI RYAN SNTOMAS SE HACEN PEOR Prescriptions: Acetaminophen [Tylenol 325mg tab] 650 mg PO Q6 PRN #30 tab PRN Reason: pain/fever Benzonatate [Tessalon Perles] 100 mg PO BID PRN #15 sgl PRN Reason: Cough Instructions: Viral Upper Respiratory Infection, Adult (DC) Forms: [employer] (Maori) Print Language: GERMAN - Clinical Impression Clinical Impression: Viral upper respiratory infection - Scribe Statement The provider has reviewed the documentation as recorded by the Scribe (Dione Okeefe) Provider Attestation: All medical record entries made by the Scribe were at my direction and personally dictated by me. I have reviewed the chart and agree that the record accurately reflects my personal performance of the history, physical exam, medical decision making, and the department course for this patient. I have also personally directed, reviewed, and agree with the discharge instructions and disposition.
[2018-08-18 15:01] VITALS: BP 138/93; PULSE 80; RESP 18
[2018-08-19 00:29] VITALS: O2SAT 97
== END 2018-08-18 15:01 | disposition home or self-care (01) ==
LOC: C.ER 12:22
DX: J06.9 Acute upper respiratory infection, unspecified (principal)